=== PATIENT | female | born 2000 ===

== ENCOUNTER 2022-11-07 13:17 | Outpatient (REF) | payer MEDICAID, SELFPAY ==
[2022-11-07 16:11] LABS: MANUAL DIFF FLAG NO
[2022-11-07 16:19] LABS: Basophils Percent Auto 0.5 % (0-2); Eosinophils Absolute Auto 0.2 X10*3/uL (0.0-0.4); Eosinophils Percent Auto 1.7 % (0-4); Hematocrit 44.3 % (37.0-47.0); Hemoglobin 14.4 g/dl (12.0-16.0); Imm Gran Abs Auto 0.04 X10*3/uL (0.00-0.03); Imm Gran Pct Auto 0.5 % (0.0-0.4); Lymphocytes Absolute Auto 2.2 X10*3/uL (1.2-4.9); Lymphocytes Percent Auto 24.6 % (20-40); Mean Corpuscular HGB Conc 32.5 g/dl (31.0-35.0); Mean Corpuscular Hemoglobin 29.9 pg (27.0-33.0); Mean Corpuscular Volume 92.1 fL (80.0-98.0); Mean Platelet Volume 11.7 fL (9.4-12.3); Monocytes Absolute Auto 0.6 X10*3/uL (0.1-1.2); Monocytes Percent Auto 6.7 % (2-11); Neutrophils Absolute Auto 5.8 x10*3/uL (2.0-8.3); Platelet Count 231 X10*3/uL (160-400); Red Blood Count 4.81 X10*6/uL (4.20-5.50); Red Cell Distribution Width 13.1 % (11.0-16.0); White Blood Count 8.8 X10*3/uL (4.8-10.8)
[2022-11-07 16:40] LABS: Alanine Aminotransferase 15 U/L (0-31); Albumin Level 4.4 g/dL (3.5-5.0); Alkaline Phosphatase 47 U/L (39-117); Aspartate Amino Transferase 20 U/L (5-31); Bilirubin Direct 0.3 mg/dL (0.0-0.5); Bilirubin Total 0.7 mg/dL (0.0-1.0); Cholesterol 142 mg/dL (<200); HDL Cholesterol 45 mg/dL (>40); LDL Cholesterol Calculated 88 mg/dL (<100); Total Protein 7.1 g/dL (6.5-8.0); Triglycerides 47 mg/dL (<150)
[2022-11-08 04:35] LABS: CT PCR NOT DETECTED (Not Detect.); NG PCR NOT DETECTED (Not Detect.)
[2022-11-08 08:49] LABS: HIV AB/AG Nonreactive (Nonreactive); HIV Num 1 0.05 S/CO (0.00-0.99); ~HepC Num1 0.06 S/CO (0.00-0.79); ~Hepatitis C Antibody Nonreactive (Nonreactive)
[2022-11-08 09:52] LABS: RPR Rapid Plasma Reagin NON-REACTIVE (NON-REACTIVE)
[2022-11-11 15:28] LABS: Testosterone, Total 743 ng/dL (2-45)
== END 2022-11-07 13:18 | disposition home or self-care (01) ==
LOC: HO.HHCL 13:17
PROVIDERS: Visit Provider Family Medicine
DX: Z11.59 Encounter for screening for other viral diseases (principal); Z11.3 Encounter for screening for infections with a predominantly sexual mode of transmission; Z11.4 Encounter for screening for human immunodeficiency virus [HIV]; F64.9 Gender identity disorder, unspecified
CPT/HCPCS: 0353U; 80061; 80076; 84403; 85025; 86592; 86803; 87389

== ENCOUNTER 2023-02-06 18:30 | Outpatient (REF) | payer MEDICAID, SELFPAY ==
[2023-02-07 14:43] LABS: Influenza A PCR NEGATIVE (Negative); Influenza B PCR NEGATIVE (Negative); Resp Syncy Virus RNA Qual PCR NEGATIVE (Negative); SARS COV2 PCR INHOUSE NEGATIVE (Negative)
== END 2023-02-06 18:31 | disposition home or self-care (01) ==
LOC: HO.HHCLNP 18:30
PROVIDERS: Visit Provider Emergency Medicine
DX: Z11.52 Encounter for screening for COVID-19 (principal); J40 Bronchitis, not specified as acute or chronic
CPT/HCPCS: 0241U

== ENCOUNTER 2023-06-20 10:17 | Outpatient (REF) | payer MEDICAID, SELFPAY ==
[2023-06-20 11:34] LABS: Hematocrit 44.4 % (37.0-47.0); Hemoglobin 14.3 g/dl (12.0-16.0); Mean Corpuscular HGB Conc 32.2 g/dl (31.0-35.0); Mean Corpuscular Hemoglobin 30.1 pg (27.0-33.0); Mean Corpuscular Volume 93.5 fL (80.0-98.0); Mean Platelet Volume 11.5 fL (9.4-12.3); Platelet Count 203 X10*3/uL (160-400); Red Blood Count 4.75 X10*6/uL (4.20-5.50); Red Cell Distribution Width 13.2 % (11.0-16.0); White Blood Count 5.2 X10*3/uL (4.8-10.8)
[2023-06-20 12:11] LABS: Alanine Aminotransferase 18 U/L (0-31); Albumin Level 4.2 g/dL (3.5-5.0); Alkaline Phosphatase 53 U/L (39-117); Aspartate Amino Transferase 22 U/L (5-31); Bilirubin Direct 0.2 mg/dL (0.0-0.5); Bilirubin Total 0.5 mg/dL (0.0-1.0); Total Protein 6.7 g/dL (6.5-8.0)
[2023-06-20 12:36] LABS: HIV AB/AG Nonreactive (Nonreactive); HIV Num 1 0.04 S/CO (0.00-0.99); ~HepC Num1 0.08 S/CO (0.00-0.79); ~Hepatitis C Antibody Nonreactive (Nonreactive)
[2023-06-20 14:17] LABS: CT PCR NOT DETECTED (Not Detect.); NG PCR NOT DETECTED (Not Detect.)
[2023-06-21 17:34] LABS: RPR Rapid Plasma Reagin NON-REACTIVE (NON-REACTIVE)
[2023-06-24 15:09] LABS: Testosterone, Total 592 ng/dL (2-45)
== END 2023-06-20 10:18 | disposition home or self-care (01) ==
LOC: HO.HHCL 10:17
PROVIDERS: Visit Provider Family Medicine
DX: Z11.3 Encounter for screening for infections with a predominantly sexual mode of transmission (principal); Z11.4 Encounter for screening for human immunodeficiency virus [HIV]; F64.9 Gender identity disorder, unspecified
CPT/HCPCS: 0353U; 36415; 80076; 84403; 85027; 86592; 86803; 87389

== ENCOUNTER 2024-04-22 10:06 | Outpatient (REF) | payer MEDICAID, SELFPAY ==
[2024-04-22 11:49] LABS: Hematocrit 41.8 % (37.0-47.0); Hemoglobin 13.6 g/dl (12.0-16.0); Mean Corpuscular HGB Conc 32.5 g/dl (31.0-35.0); Mean Corpuscular Hemoglobin 29.8 pg (27.0-33.0); Mean Corpuscular Volume 91.5 fL (80.0-98.0); Mean Platelet Volume 10.9 fL (9.4-12.3); Platelet Count 201 X10*3/uL (160-400); Red Blood Count 4.57 X10*6/uL (4.20-5.50); Red Cell Distribution Width 13.3 % (11.0-16.0); White Blood Count 11.2 X10*3/uL (4.8-10.8)
--- OUTSIDE RECORDS SUMMARY | 2024-04-22 11:51 | XMS_ITS | Encounter Summary ---
Author Organization [employer] Address [address] [place] [address] Care Team Providers Care Parts Cleaner Name Role Phone Latoya Zazueta MD Primary Care Provider [phone]- [phone] Encounter Details Date Type Department Care Team (Latest Contact Info) Description 04/16/2024 Travel Social History Tobacco Use Types Packs/Day Years Used Date Smoking Tobacco: Never Passive Smoke Exposure: Never Smokeless Tobacco: Never Depression Answer Date Recorded Patient Health Questionnaire-9 Score 0 06/20/2023 Patient Health Questionnaire-9 Score 0 06/20/2023 Last PHQ-9: Questionnaire Data Not on file 0 06/20/2023 Housing Stability Answer Date Recorded What is your housing situation today? I have kim naranjo 06/12/[address] you li ve. Do you have problems with any of the following? None of the above 06/12/2023 Food Insecurity Answer Date Recorded Within the past 12 months, y ou worried that your food would run out before you got money to buy more: Sometimes True 2023 Within the past 12 months,th e food you bought just didn't last and you didn't have enough money to get more: Sometimes True 06/12/2023 Transportation Answer Date Recorded In the past 12 months, has l ack of transportation kept you from medical appts, meetings, work or from getting things needed for daily living? Yes, it has kept me from medical appointments or getting medications. 06/12/2023 Utilities Answer Date Recorded In the past 12 months, has t he electric, gas, oil or water company threatened to shut off services in your home? No 06/12/2023 Depression Answer Date Recorded Patient Health Questionnaire-2 Score 0 06/20/2023 Comments Unknown Sex and Gender Information Value Date Recorded Sex Assigned at Female 12/18/2021 10:38 AM EDT Legal Sex Male 10:38 AM EDT Gender Identity Transgender Male 12/18/2021 10:3 8 AM EDT Sexual Orientation Straight 12/18/2021 10 :38 AM EDT documented as of this encounter Plan of Treatment Not on file documented as of this encounter Visit Diagnoses Not on filedocumented in this encounter Additional Health Concerns Assessment Noted Time PHQ-9 Depression Total Score: 0 06/20/19 24 9:42 AM EDT documented as of this encounter Care Teams Parts Cleaner Relationship Specialty Start Date End Date Latoya Zazueta MD [address] [place] [phone] PCP - General Family Medicine 06/01/20 documented as of this encounter
--- OUTSIDE RECORDS SUMMARY | 2024-04-22 11:51 | XMS_ITS | Encounter Summary ---
Author Organization [employer] Address [address] [place] [address] 7t [place] [address] Care Team Providers Care Foreign Service Officer Name Role Phone Latoya Zazueta MD Primary Care Provider [phone]- [phone] Reason for Visit * Reason Onset Date Comments Med Refill 04/04/2022 Encounter Details Date Type Department Care Team ([facility] st Contact Info) Description 04/04/2022 Refill [facility]ICINE [address] [place], [place] [phone] Latoya Zazueta MD [address] [place], [place] [phone] Social History Tobacco Use Types Packs/Day Years Used Date Smoking Tobacco: Never Assessed Comments Unknown Sex and Gender Information Value Date Recorded Sex Assigned at Female 12/18/2021 10:38 AM EDT Legal Sex Male 10:38 AM EDT Gender Identity Transgender Male 12/18/2021 10:3 8 AM EDT Sexual Orientation Straight 12/18/2021 10 :38 AM EDT COVID-19 Exposure Response Date Recorded In the last 10 days, have yo u been in contact with someone who was confirmed or suspected to have Coronavirus/COVID-19? No / Unsure 04/05/2022 3:35 PM EST documented as of this encounter Miscellaneous Notes * Telephone Encounter - Ligia Tang LPN - 04/04/2022 11:54 AM EST Medication was sent to [facility] today 04/04/22. * Telephone Encounter - Billie Kumar Blake - 04/04/2022 11:25 AM EST Tc from pt requesting med refill on Needle (disp) 16 gauge x 1 and Alcohol Pads Please sent to [facility] - [place], [place] - [address] [facility] documented in this encounter Plan of Treatment Not on file documented as of this encounter Visit Diagnoses Not on filedocumented in this encounter Care Teams Foreign Service Officer Relationship Specialty Start Date End Date Latoya Zazueta MD [address] [facility] [place] [address] PCP - General Family Medicine 06/01/20 documented as of this encounter
--- OUTSIDE RECORDS SUMMARY | 2024-04-22 11:51 | XMS_ITS | Encounter Summary ---
Author Organization [employer] Address [address] [facility] [address] [address] [place] [address] Care Team Providers Care Family Development Specialist Name Role Phone Latoya Zazueta MD Primary Care Provider +1- [phone] Encounter Details Date Type Department Care Team (Late st Contact Info) Description 03/06/2022 Abstract [facility] MEDICINE [address] [place], [place] [phone] Latoya Zazueta MD [address] [place] [address] Social History Tobacco Use Types Packs/Day Years [...] on file documented as of this encounter Procedures Procedure Name Priority Date/Time Associated Diagnosis Comments PAP SMEAR Routine 11/03/2021 12:00 AM EDT documented in this encounter Results * Pap Smear (11/03/2021 12:00 AM EDT) Swab us Latoya Zazueta MD LAB CYTOLOGY ORDERABLES Fi nal Result [facility] [address] [place] [address] [phone] documented in this encounter Visit Diagnoses Not on filedocumented in this encounter Care Teams Family Development Specialist Relationship Specialty Start Date End Date Latoya Zazueta MD [address] [place] [phone] PCP - General Family Medicine 06/01/20 documented as of this encounter
--- OUTSIDE RECORDS SUMMARY | 2024-04-22 11:51 | XMS_ITS | Clinical Summary ---
Author Organization [employer] Address [address] [facility] [address] [place] [address] Care Team Providers Care Back Pad Inspector Name Role Phone Latoya Zazueta MD Primary Care Provider +1- [phone] Allergies No known active allergies Medications Alcohol Swabs (SM Alcohol Prep) 70 % padsIndications: Gender dysphoria USE BEFORE TESTOSTERONE INJECTION 100 each 5 07/11/19 24 Active Needle, Disp, (BD Disp [place]) 18G X 1-1/2 miscIndications: Gender dysphoria Use to draw up testosterone as directed 12 each 3 11/13/19 24 Active Needle, Disp, 16G X 1-1/2 miscIndications: Gender dysphoria use to draw up testosterone 25 each 1 11/13/19 24 Active Syringe/Needle, Disp, (B-D 3CC LUER-VANESSA SYR 25GX1 ) 25G X 1 3 ML miscIndications: Gender dysphoria USE TO INJECT TESTOSTERONE 25 each 5 12/27/19 24 Active albuterol (Ventolin HFA) 108 (90 Base) MCG/ACT inhalerIndicatio ns:Mild intermittent asthma without complication INHALE 2 PUFFS BY MOUTH EVERY 4 HOURS NEEDED FOR WHEEZING OR SHORTNESS OF BREATH 18 g 1 01/30/20 24 Active testosterone cypionate (Depo-Testostero ne) 200 MG/ML injectionIndicat ions:Gender dysphoria INJECT 0.5 ML INTRAMUSCULARLY EVERY 2 WEEKS 2 mL 4 02/24/19 25 Active Active Problems Problem Noted Date Diagnosed Date Dietary counseling 04/16/2024 Assessment & Plan (04/16/2024 9:43 AM EST): Dietary Recommendations: Fruits, vegetables, whole grains, protein foods, and fat-free or low-fat dairy products are healthy choices. Eat different types of protein foods in your diet. This can include seafood, lean meats, poultry, beans, peas, lentils, nuts, seeds, soy products, and eggs. Limit foods and beverages higher in added sugars, saturated fat, and sodium. Exercise counseling 04/16/2024 Assessment & Plan (04/16/2024 9:43 AM EST): Exercise Recommendations: At least 150 minutes of moderate-intensity physical activity per week, or an equivalent combination of moderate- and vigorous-intensity activity Overweight with body mass in dex (BMI) of 25 to 25.9 in adult 04/16/2024 Overview (04/16/2024): Discussed weight, diet, exercise with patient in relation to health conditions. Used motivational interviewing to illicit change talk and established initial goals with patient. Assessment & Plan (04/16/2024 9:43 AM EST): Discussed weight, diet, exercise with patient in relation to health conditions. Used motivational interviewing to illicit change talk and established initial goals with patient. Callus of foot 06/20/2023 Overview (06/20/2023): -Calluses pared down without difficulty 06/20/23 -Patient experienced immediate relief in pain Assessment & Plan (06/20/2023 10:03 AM EDT): -Calluses pared down without difficulty 06/20/23 -Patient experienced immediate relief in pain Other specified health status 10/29/2022 Overview (04/16/2024): -next physical exam due after 04/16/25 -eye care facilitated by none, referral placed to [facility] 04/16/24 -dental home is none, encouraged to call [facility]. -Health care proxy filed 04/16/24 Assessment & Plan (04/16/2024 10:02 AM EST): -next physical exam due after 04/16/25 -eye care facilitated by none, referral placed to [facility] care 04/16/24 -dental home is none, encouraged to call [facility]. -Health care proxy filed 04/16/24 Assessment & Plan (06/20/2023 10:01 AM EDT): -next physical exam due after 11/01/2023. -eye care facilitated by none, referral placed to [facility] care 06/20/23 -dental home is none, encouraged to call [facility]. -Health care proxy paperwork provided to the patient 06/20/23 Assessment & Plan (10/31/2022 10:49 AM EDT): -next physical exam due after 10/31/2022 -eye care facilitated by none, list given. -dental home is none. Encouraged to call [facility]. 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 -Had cochlear implants -Patient needs accountant controller for all visits. Please make note of this in any referrals. -referred to audiology 04/16/24 Assessment & Plan (04/16/2024 10:03 AM EST): Bilateral deafness. -Had cochlear implants -Patient needs accountant controller for all visits. Please make note of this in any referrals. -referred to audiology 04/16/24 Gender dysphoria 04/05/2022 Overview (04/16/2024): Assigned female at , socially transitioned. Uses the name Zack and he/him pronouns. -testosterone cypionate 200mg/ml at 0.5mL q 2 weeks started 07/01/2020, testosterone was at increase to 1ml q2 weeks 08/15/2020 and Testosterone level 09/28/2020 was elevated at 1,236. (goal 350-700) -testosterone cypionate 200mg/ml decreased to 0.5ml q 2 weeks 10/13/2020 due to elevated testosterone. (Goal testosterone level 350-700) -Testosterone level was 743 on 11/07/22 and 587 on 10/11/21. -Letter from therapist for breast augmentation. -New referral sent to Dr. [place] 10/31/2022. -missed last testosterone shot, ordered labs 04/16/24 -interested in breast surgery, discussed getting referral from therapist. -referred to empowerment project 04/16/24 Assessment & Plan (04/16/2024 10:02 AM EST): Assigned female at , socially transitioned. Uses the name Zack and he/him pronouns. -testosterone cypionate 200mg/ml at 0.5mL q 2 weeks started 07/01/2020, testosterone was at increase to 1ml q2 weeks 08/15/2020 and Testosterone level 09/28/2020 was elevated at 1,236. (goal 350-700) -testosterone cypionate 200mg/ml decreased to 0.5ml q 2 weeks 10/13/2020 due to elevated testosterone. (Goal testosterone level 350-700) -Testosterone level was 743 on 11/07/22 and 587 on 10/11/21. -Letter from therapist for breast augmentation. -New referral sent to Dr. [place]wood 10/31/2022. -missed last testosterone shot, ordered labs 04/16/24 -interested in breast surgery, discussed getting referral from therapist. -referred to empowerment project 04/16/24 Assessment & Plan (06/20/2023 9:46 AM EDT): Assigned female at , socially transitioned. Uses the name Zack and he/him pronouns. -testosterone cypionate 200mg/ml at 0.5mL q 2 weeks started 07/01/2020, testosterone was at increase to 1ml q2 weeks 08/15/2020 and Testosterone level 09/28/2020 was elevated at 1,236. (goal 350-700) -testosterone cypionate 200mg/ml decreased to 0.5ml q 2 weeks 10/13/2020 due to elevated testosterone. (Goal testosterone level 350-700) -Testosterone level was 743 on 11/07/22 and 587 on 10/11/21. -Letter from therapist for breast augmentation. -New referral sent to Dr. [place]wood 10/31/2022. Assessment & Plan (10/31/2022 10:48 AM EDT): Assigned female at , socially transitioned. Uses the name Zack and he/him pronouns. -testosterone cypionate 200mg/ml at 0.5mL q 2 weeks started 07/01/2020, testosterone was at increase to 1ml q2 weeks 08/15/2020 and Testosterone level 09/28/2020 was elevated at 1,236. (goal 350-700) -testosterone cypionate 200mg/ml decreased to 0.5ml q 2 weeks 10/13/2020 due to elevated testosterone. (Goal testosterone level 350-700) -Testosterone level was 587 on 10/11/21. -Letter from therapist for breast augmentation. -New referral sent to Dr. [place]wood 10/31/2022. Assessment & Plan (04/06/2022 10:54 AM EST): Assigned female at , socially transitioned. Uses the name Zack and he/him pronouns. -Testosterone cypionate 200mg/ml at 0.5mL q 2 weeks started 07/01/2020, testosterone was at increase to 1ml q2 weeks 08/15/2020 and Testosterone level 09/28/2020 was elevated at 1,236. (goal 350-700) -Testosterone cypionate 200mg/ml decreased to 0.5ml q 2 weeks 10/13/2020 due to elevated testosterone. (Goal testosterone level 350-700) -Testosterone level was 587 on 10/11/21. -Next labs due 09/2022. Unsatisfactory cervical Papanicolaou smear 04/05 Overview (04/05/2022): Pap unsatisfactory, low risk, shared decision making done. Assessment & Plan (04/05/2022 9:17 AM EST): Pap unsatisfactory, low risk, shared decision making done. Plantar wart 04/05/2022 Leg pain, bilateral 04/05/2022 Resolved Problems Problem Noted Date Diagnosed Date Resolved Date Sexually transmitted disease exposure 04/05/2022 10/31/2022 Overview (10/29/2022): -reports girlfriend had chlamydia x1 month ago. He is not sure it was chlamydia but reports it started with letter c -continues to be sexually active -will test for all STIs, including oral -will hold off on empiric treatment given history of exposure is not clear and pt is good with follow up. Assessment & Plan (04/05/2022 9:17 AM EST): -reports girlfriend had chlamydia x1 month ago. He is not sure it was chlamydia but reports it started with letter c -continues to be sexually active -will test for all STIs, including oral -will hold off on empiric treatment given history of exposure is not clear and pt is good with follow up. Encounters Date Type Department Care Team Description 04/16/2024 9:30 AM EST Office Visit [facility] [address] [place] [phone] Latoya Zazueta MD Gender dysphoria (Primary Dx); Bilateral deafness; Overweight with body mass index (BMI) of 25 to 25.9 in adult; Dietary counseling; Exercise counseling; Other specified health status; Encounter for immunization; Cochlear implant in place 04/16/2024 Travel 04/09/2024 Telephone [facility] [address] [place] [phone] Latoya Zazueta MD chartprep 04/03/2024 Patient Outreach [facility] [address] [place] [phone] Latoya Zazueta MD Pre-visit Planning (Pre-visit planning - LVM ) 02/25/2024 Refill [facility] [address] [place] [address] [phone] Latoya Zazueta MD Gender dysphoria 01/30/2024 Refill [facility] [address] [place] [address] [phone] Laotya Zazueta MD Mild intermittent asthma without complication 01/27/2024 Telephone [facility] [address] [place] [phone] Alee Gann MA March Recall from Last 3 Months Immunizations Name Administration Dates Next Due HPV 9-Valent 10/31/2022,05/04/2022,04/06/2022 05/04/2022 Hep B, adult 06/20/2023, 3,05/04/2022,04/0605/04/2022 Influenza injectable quadriv alent IIV4 with preservative 10/31/2022 Influenza injectable quadriv alent preservative free 11/03/2021,12/19/2020 Influenza, seasonal, injecta ble, preservative free 04/16/2024 Moderna Covid-19 Vaccine 12+ 03/07/2021,07/14/19 21,06/15/2020 Pneumococcal Conjugate PCV 20 06/20/2023 Tdap 11/03/2021 Family History Medical History Relation Name Comments Diabetes Maternal Grandmother Lupus Mother Relation Name Status Comments Maternal Grandmother Mother Social History Tobacco Use Types Packs/Day Years Used Date Smoking Tobacco: Never Passive Smoke Exposure: Never Smokeless Tobacco: Never Tobacco Cessation:Counseling Given: Not Answered Depression Answer Date Recorded Patient Health Questionnaire-9 [...] Orientation Straight 12/18/2021 10 :38 AM EDT Last Filed Vital Signs Vital Sign Reading Time Taken Comments Blood Pressure 120/68 04/16/2024 9:33 AM EST Pulse 62 04/16/2024 9:33 AM EST Temperature 35.5 ??C (95.9 ??F) 04/16/2024 9:33 AM ES T Respiratory Rate 20 04/16/2024 9:33 AM EST Oxygen Saturation 97% 04/16/2024 9:33 AM EST Inhaled Oxygen Concentration - - Weight 57.9 kg (127 lb 9.6 oz) 04/16/2024 9:33 A M EST Height 150.5 cm (4' 11.25 ) 04/16/2024 9:[address] Body Mass Index 25.56 04/16/2024 9:33 AM EST Plan of Treatment Health Maintenance Due Date Last Done Comments SDOH Screening 06/11/2024 06/12/2023 Depression Screening 06/19/2024 06/20/2023, 06/20/19 Family Planning (PISQ) 06/19/2024 06/20/2023 Tobacco Screening 06/19/2024 06/20/2023 Pap Smear 11/03/2024 11/03/2021, 11/03/2021 Alcohol/Substance Use Screening 04/16/2025 04/16/2024 COVID-19 Vaccine ( season) 2025 03/07/2021, 07/13/2020, 06/15/2020 Postponed from 10/20/2023 (Patient Refused) DTaP/Tdap/Td Vaccines (2 - Td or Tdap) 11/04/2031 11/03/2021 Zoster Vaccines (1 of 2) 2048 RSV Patients and Patients Aged 60 years or older (1 - 1-dose 75+ series) 2073 HPV Vaccines Completed 10/31/2022, 04/18, 04/06/2022 HIV Screening Completed 06/20/2023, 10/20, 10/11/2021, Additional history exists Hepatitis B Vaccines Completed 06/20/2023, 06/29/2022, 05/04/2022, Additional history exists Hepatitis C Screening Completed 06/20/2023 , 11/07/2022, 10/11/2021, Additional history exists Pneumococcal Vaccine: Pediatrics (0 to 5 Years) and At-Risk Patients (6 to 49) Years) Completed 06/20/2023 Influenza Vaccine Completed 04/16/2024, , 11/03/2021, Additional history exists HIB Vaccines Aged Out No longer eligi ble based on patient's age to complete this topic Hepatitis A Vaccines Aged Out No long er eligible based on patient's age to complete this topic IPV Vaccines Aged Out No longer eligi ble based on patient's age to complete this topic Meningococcal Vaccine Aged Out No agustin maura eligible based on patient's age to complete this topic RSV under 20 months Aged Out No longe r eligible based on patient's age to complete this topic Rotavirus Vaccines Aged Out No longer eligible based on patient's age to complete this topic Procedures Procedure Name Priority Date/Time Associated Diagnosis Comments CBC Routine 04/22/2024 10:09 AM EST Gender dysphoria HEPATITIS C AB W/REFL TO HCV RNA, QN, PCR Routine 06/20/2023 10:19 AM EDT Screen for sexually transmitted diseases HIV 1/2 ANTIGEN/ANTIBODY, FOURTH GENERATION W/RFL Routine 06/20/2023 10:19 AM EDT Screen for sexually transmitted diseases PAP SMEAR Routine 11/03/2021 12:00 AM EDT from Last 3 Months or Most Recently Relevant to Health Maintenance Results * (ABNORMAL) CBC (04/22/2024 10:09 AM EST) White Blood Count 11.2(H) 4.8 - 10.8 X10*3/uL [facility] Red Blood Count 4.57 4.20 - 5.50 X10*6/uL [facility] Hemoglobin 13.6 12.0 - 16.0 g/dl [facility] Hematocrit 41.8 37.0 - 47.0 % [facility] Mean Corpuscular Volume 91.5 80.0 - 98.0 fL [facility] Mean Corpuscular Hemoglobin 29.8 27.0 - 33.0 pg [facility] Mean Corpuscular HGB Conc 32.5 31.0 - 35.0 g/dl [facility] Red Cell Distribution Width 13.3 11.0 - 16.0 % [facility] Platelet Count 201 160 - 400 X10*3/uL [facility] Mean Platelet Volume 10.9 9.4 - 12.3 fL [facility] NRBC Pct Auto 0.0 0.0 - 0.2 /100WBC [facility] NRBC Abs Auto 0.000 0.0 - 0.012 X10*3/uL [facility] Blood Venous blood specimen / Unknown 04/22/2024 10:09 AM EST 04/22/2024 11:25 AM EST Latoya Zazueta MD LAB BLOOD ORDERABLES Final Result Performing Organization Address [facility]/ZIP Co de Phone Number [facility] [address] [place] [phone] * Hepatitis C Antibody with Reflex to HCV, RNA, Quantitative, Real-Time PCR (06/20/2023 10:19 AM EDT) Hepatitis C Antibody Nonreactive Nonreactive [facility] Comment:Antibodies to HCV no t detected; does not exclude early acuteHCV infection. Blood Venous blood specimen / Unknown 06/20/2023 10:19 AM EDT 06/20/2023 11:27 AM EDT Latoya Zazueta MD LAB BLOOD ORDERABLES Final Result Performing Organization Address [facility]/ZIP Co de Phone Number [facility] [address] [place] [phone] * HIV-1/2 Antigen and Antibodies, Fourth Generation, with Reflexes (06/20/2023 10:19 AM EDT) HIV AB/AG Nonreactive Nonreactive [facility] Comment:HIV-1 p24 Ag and/or HIV-1/HIV-2 Ab not detected.A test result that is nonreactive does not exclude thepossibility of exposure to or infection with HIV-1 and/orHIV-2. Nonreactive results in this assay for individualswith prior exposure to HIV-1 and/or HIV-2 may be due toantigen and antibody levels that are below the limit ofdetection of this assay.The [employer] HIV Ag/Ab Combo assay result andsupplemental assay results should be interpreted inconjunction with the patient's clinical presentation,history and other laboratory results. If the results areinconsistent with clinical evidence, additional testing issuggested to confirm the result. Blood Venous blood specimen / Unknown 06/20/2023 10:19 AM EDT 06/20/2023 11:27 AM EDT Latoya Zazueta MD LAB BLOOD ORDERABLES Final Result Performing Organization Address [facility] Co de Phone Number [facility] [address] [place] [phone] * Pap Smear (11/03/2021 12:00 AM EDT) Swab Latoya Zazueta MD LAB CYTOLOGY ORDERABLES Fi nal Result Performing Organization Address [facility] Co de Phone Number [facility] [address] [place] [phone] from Last 3 Months or Most Recently Relevant to Health Maintenance [place] [address] [address] [address] STANDARD Advance Directives Documents on File Type Date Recorded 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
--- OUTSIDE RECORDS SUMMARY | 2024-04-22 11:52 | XMS_ITS | Clinical Summary ---
Author Organization [facility] Address [address] [place] [address] Care Team Providers Care Dental Office Manager Name Role Phone Unavailable Primary Care Provider Unavailabl e Social History Tobacco Use Types Packs/Day Years Used Date Smoking Tobacco: Never Assessed Comments Unknown Sex and Gender Information Value Date Recorded Sex Assigned at Not on file Legal Sex Female 5:08 PM EST Gender Identity Not on file Sexual Orientation Not on file Plan of Treatment Health Maintenance Due Date Last Done Comments HPV Vaccines (1 - 3-dose series) 2013 DTaP,Tdap,and Td Vaccines (1 - Tdap) 2017 Hepatitis B Vaccines (1 of 3 - 19+ 3-dose series) 2017 Cervical Cancer Screening: P ap Smear 2019 Depression Screening 01/17/2022 HIV Screening 01/17/2022 Hepatitis C Screening 01/17/2022 Social Influencers of Health Screening 01/17/2022 COVID-19 Vaccine ( - 2023-2 5 season) 2023 Influenza Vaccine (#1) 2023 HIB Vaccines Aged Out No longer eligi ble based on patient's age to complete this topic Hepatitis A Vaccines Aged Out No long er eligible based on patient's age to complete this topic IPV Vaccines Aged Out No longer eligi ble based on patient's age to complete this topic MMR Vaccines Aged Out No longer eligi ble based on patient's age to complete this topic Meningococcal ACWY Vaccine Aged Out N o longer eligible based on patient's age to complete this topic Meningococcal B Vacine Aged Out No lo nger eligible based on patient's age to complete this topic Pneumococcal Vaccine: Pediat rics (0 to 5 Years) and At-Risk Patients (6 to 64 Years) Aged Out No longer eligible b ased on patient's age to complete this topic RSV Immunization Patients Un tamiko 20 months Aged Out No longer eligible b ased on patient's age to complete this topic Varicella Vaccines Aged Out No longer eligible based on patient's age to complete this topic
--- OUTSIDE RECORDS SUMMARY | 2024-04-22 11:52 | XMS_ITS | Encounter Summary ---
Author Organization [employer] Address [address] [facility] 7t [place] [address] Care Team Providers Care Segment Block Layer Name Role Phone Latoya Zazueta MD Primary Care Provider +1- [phone] Reason for Visit * Reason Onset Date Comments Med Refill 09/16/2023 Encounter Details Date Type Department Care Team (Late st Contact Info) Description 09/16/2023 Refill [facility] [address] [place], [place] [phone] Latoya Zazueta MD [address] [place], [place] [phone] Gender dysphoria Social History Tobacco Use Types Packs/Day Years [...] documented as of this encounter Visit Diagnoses Diagnosis Gender dysphoria documented in this encounter Additional Health Concerns Assessment Noted Time PHQ-9 Depression Total Score: 0 06/20/19 24 9:42 AM EDT documented as of this encounter Care Teams Segment Block Layer Relationship Specialty Start Date End Date Latoya Zazueta MD [address] [place] [address] PCP - General Family Medicine 06/01/20 documented as of this encounter
--- OUTSIDE RECORDS SUMMARY | 2024-04-22 11:52 | XMS_ITS | Encounter Summary ---
Author Organization [employer] Address [address] [facility] 7t [place] [address] Care Team Providers Care Fringe Knotter Name Role Phone Latoya Zazueta MD Primary Care Provider +1- [phone] Reason for Visit * Reason Onset Date Comments Med Refill 07/10/2023 Encounter Details Date Type Department Care Team ([facility] st Contact Info) Description 07/10/2023 Telephone [facility] MED[facility]INE [address] [place], [place] [phone] Latoya Zazueta MD [address] [place], [place] [phone] Med Refill Social History Tobacco Use Types Packs/Day Years [...] AM EDT documented as of this encounter Miscellaneous Notes * Telephone Encounter - Ligia Tang LPN - 07/10/2023 11:43 AM EDT Medication pended to PCP. * Telephone Encounter - Shu Capone - 07/10/2023 11:37 AM EDT TC from pt requesting medication refill. Medications needing refill : testosterone cypionate (Depo-Testosterone) 200 MG/ML injection To be sent to: [facility]/pharmacy #[id number] [facility] [phone] [place] [address] documented in this encounter Plan of Treatment Not on file documented as of this encounter Visit Diagnoses Not on filedocumented in this encounter Additional Health Concerns Assessment Noted Time PHQ-9 Depression Total Score: 0 06/20/19 24 9:42 AM EDT documented as of this encounter Care Teams Fringe Knotter Relationship Specialty Start Date End Date Latoya Zazueta MD [address] [place] [phone] PCP - General Family Medicine 06/01/20 documented as of this encounter
--- OUTSIDE RECORDS SUMMARY | 2024-04-22 11:52 | XMS_ITS | Encounter Summary ---
Author Organization [employer] Address [address] [facility] 7t [place] [address] Care Team Providers Care Compliance Monitor Name Role Phone Latoya Zazueta MD Primary Care Provider +1- [phone] Reason for Visit * Reason Onset Date Comments Med Refill 01/08/2024 Encounter Details Date Type Department Care Team ([facility] st Contact Info) Description 01/08/2024 Telephone [facility] MEDICINE [address] [place], [place] [phone] Latoya Zazueta MD [address] [place], [place] [phone] Med Refill Social History Tobacco Use Types [...] Telephone Encounter - Ligia Tang LPN - 01/08/2024 8:45 AM EST Medication was sent to [facility] #[id number] on 11/13/23 with 4 refills. * Telephone Encounter - Radha Orosco - 01/08/2024 8:41 AM EST TC from pt requesting medication refill. Medications needing refill : testosterone cypionate (Depo-Testosterone) 200 MG/ML injection To be sent to: [facility]/pharmacy #[id number] [place], [place] - [phone] documented in this encounter Plan of Treatment Not on file documented as of this encounter Visit Diagnoses Not on filedocumented in this encounter Additional Health Concerns Assessment Noted Time PHQ-9 Depression Total Score: 0 06/20/19 9:42 AM EDT documented as of this encounter Care Teams Compliance Monitor Relationship Specialty Start Date End Date Latoya Zazueta MD [address] [place] [address] PCP - General Family Medicine 06/01/20 documented as of this encounter
--- OUTSIDE RECORDS SUMMARY | 2024-04-22 11:52 | XMS_ITS | Encounter Summary ---
Author Organization [employer] Address [address] [place] [address] 7t [place] [address] Care Team Providers Care Pipe Fitter Maintenance Name Role Phone Latoya Zazueta MD Primary Care Provider +1- [phone] Reason for Referral * Consultation (Routine) - Authorized Specialty Diagnoses / Procedures Referred By Lorin mejia Referred To Contact Optometry Diagnoses Bilateral deafness Latoya Zazueta MD [address] [place] [address] Phone: tel: fax: [facility] OPTOMETRY [address] [place] [address] Phone: tel: fax: Referral ID Status Reason Start Date Expiration Date Visits Requested Visits Authorized [id number] Authorized Consult and Treat 04/16/2024 04/16/2025 1 1 * Consultation (Routine) - Authorized Specialty Diagnoses / Procedures Referred By Lorin mejia Referred To Contact Audiology Diagnoses Bilateral deafness Cochlear implant in place Latoya Zazueta MD [address] [place] [address] Phone: tel: fax: [facility] [place] [address] [address], [place] Phone: tel: fax: Referral ID Status Reason Start Date Expiration Date Visits Requested Visits Authorized [id number] Authorized Specialty Services Required 04/16/2024 04/16/2025 6 6 Reason for Visit * Reason Comments Annual Exam Encounter Details Date Type Department Care Team (Late st Contact Info) Description 04/16/2024 9:30 AM EST Office Visit [facility] MEDIC[facility] [address] [place] [address] Latoya Zazueta MD [address] [place] [address] Gender dysphoria (Primary Dx); Bilateral deafness; Overweight with body mass index (BMI) of 25 to 25.9 in adult; Dietary counseling; Exercise counseling; Other specified health status; Encounter for immunization; Cochlear implant in place Social History Tobacco Use Types Packs/Day Years Used Date Smoking Tobacco: Never Passive Smoke Exposure: Never Smokeless Tobacco: Never Depression Answer Date Recorded Patient Health Questionnaire-9 Score 0 06/20/2023 Patient Health Questionnaire-9 Score 0 06/20/2023 Last PHQ-9: Questionnaire Data Not on file 0 06/20/2023 Housing Stability Answer Date Recorded What is your housing situation today? I have kim jose a 06/12/[address] you li [...] AM EDT documented as of this encounter Last Filed Vital Signs Vital Sign Reading [...] Mass Index 25.56 04/16/2024 9:33 AM EST documented in this encounter Patient Instructions * Patient Instructions* Latoya Zazueta MD - 04/16/2024 9:30 AM EST [facility] provides affirming mental health care services for LGBTQIA+ children, adolescents, adults, families and communities via the [employer] [facility]. This includes assessment for letters of support for hormone blockers, hormone replacement therapy, and gender confirmation surgeries. Call [phone] to schedule an initial intake with a therapist. Let the initial therapist know you want to be part of the [facility] Project and the clinician will refer you to the [facility]. documented in this encounter Progress Notes * Latoya Zazueta MD - 04/16/2024 9:30 AM EST More Dixon is a 24 y.o. adult with past medical history bilateral deafness and gender dysphoria who presents to the office today for chronic medical conditions and comprehensive annual evaluation. Overall reports doing well. Pt reports he was suppose to have his testosterone shot x2 weeks ago, but he missed a shot. He notes he would like to have breast surgery. Agrees to flu vaccine today. Social History Tobacco: denied Drugs: alcohol and marijuana, smokes occasional weed, no interested in cessation. Alcohol: on rare social occassions Sexuality: unspecified. Suicide/Depression: The patient denies any present symptoms of depression or anxiety. Review of Systems Constitutional: Negative for fever and unexpected weight change. Respiratory: Negative for shortness of breath. Cardiovascular: Negative for chest pain. Gastrointestinal: Negative for abdominal pain. Genitourinary: Negative for difficulty urinating. Current Outpatient Medications: ??? albuterol (Ventolin HFA) 108 (90 Base) MCG/ACT inhaler, INHALE 2 PUFFS BY MOUTH EVERY 4 HOURS NEEDED FOR WHEEZING OR SHORTNESS OF BREATH, Disp: 18 g, Rfl: 1 ??? Alcohol Swabs (SM Alcohol Prep) 70 % pads, USE BEFORE TESTOSTERONE INJECTION, Disp: 100 each, Rfl: 5 ??? Needle, Disp, (BD Disp Universal) 18G X 1-1/2 misc, Use to draw up testosterone as directed, Disp: 12 each, Rfl: 3 ??? Needle, Disp, 16G X 1-1/2 misc, use to draw up testosterone, Disp: 25 each, Rfl: 1 ??? Syringe/Needle, Disp, (B-D 3CC LUER-VANESSA SYR 25GX1 ) 25G X 1 3 ML misc, USE TO INJECT TESTOSTERONE, Disp: 25 each, Rfl: 5 ??? testosterone cypionate (Depo-Testosterone) 200 MG/ML injection, INJECT 0.5 ML INTRAMUSCULARLY EVERY 2 WEEKS, Disp: 2 mL, Rfl: 4 No Known Allergies Past Medical History: Diagnosis Date ??? Bilateral deafness 04/06/2022 Past Surgical History: Procedure Laterality Date ??? COCHLEAR IMPLANT 2000 Family History Problem Relation Name Age of Onset ??? Lupus Mother ??? Diabetes Maternal Grandmother Objective Visit Vitals BP 120/68 (BP Location: Left arm, Patient Position: Sitting, BP Cuff Size: Adult) Pulse 62 Temp 95.9 ??F (35.5 ??C) (Temporal) Resp 20 Ht 4' 11.25 (1.505 m) Wt 127 lb 9.6 oz (57.9 kg) SpO2 97% BMI 25.56 kg/m?? Smoking Status Never BSA 1.56 m?? Physical Exam Constitutional: Appearance: Normal appearance. HENT: Right Ear: Tympanic membrane normal. Left Ear: Tympanic membrane normal. Nose: Nose normal. Mouth/Throat: Pharynx: Oropharynx is clear. Eyes: Extraocular Movements: Extraocular movements intact. Pupils: Pupils are equal, round, and reactive to light. Cardiovascular: Rate and Rhythm: Normal rate and regular rhythm. Heart sounds: Normal heart sounds. Pulmonary: Effort: Pulmonary effort is normal. Breath sounds: Normal breath sounds. No wheezing. Abdominal: General: Abdomen is flat. Palpations: Abdomen is soft. Tenderness: There is no abdominal tenderness. Musculoskeletal: General: Normal range of motion. Skin: General: Skin is warm and dry. Neurological: General: No focal deficit present. Mental Status: He is alert. Psychiatric: Mood and Affect: Mood normal. Behavior: Behavior normal. 24 y.o. adult annual evaluation. Problem List Items Addressed This Visit Gender dysphoria - Primary Assigned female at , socially transitioned. Uses the name Zack and he/him pronouns. -testosterone cypionate 200mg/ml at 0.5mL q 2 weeks started 07/01/2020, testosterone was at increaseto 1ml q2 weeks 08/15/2020 and Testosterone level [...] from therapist. -referred to empowerment project 04/16/24 Relevant Orders Hepatic Function Panel CBC Testosterone, Total, males (Adult), IA Lipid Panel, Standard Bilateral deafness Bilateral deafness. -Had cochlear implants -Patient needs deployment manager for all visits. Please make note of this in any referrals. -referred to audiology 04/16/24 Relevant Orders Referral to Audiology Referral to [facility] Care Overweight with body mass index (BMI) of 25 to 25.9 in adult Discussed weight, diet, exercise with patient in relation to health conditions. Used motivational interviewing to illicit change talk and established initial goals with patient. Dietary counseling Dietary Recommendations: Fruits, vegetables, whole grains, protein foods, and fat-free or low-fat dairy products are healthychoices. Eat different types of protein foods in your diet. This can include seafood, lean meats, poultry, beans, peas, lentils, nuts, seeds, soy products, and eggs. Limit foods and beverages higher in added sugars, saturated fat, and sodium. Exercise counseling Exercise Recommendations: At least 150 minutes of moderate-intensity physical activity per week, or an equivalent combinationof moderate- and vigorous-intensity activity Other specified health status -next physical exam due after 04/16/25 -eye care facilitated by none, referral placed to [facility] Eye care 04/16/24 -dental home is none, encouraged to call [facility]. -Health care proxy filed 04/16/24 Other Visit Diagnoses Encounter for immunization Relevant Orders FLU VACCINE TRIVALENT (Fluarix) 6 mo + (Completed) Cochlear implant in place Relevant Orders Referral to Audiology Annual Evaluation -Normal growth and development. -Anticipatory guidance discussed. -Preventative care / harm reduction discussed. Follow up in about 7 months (around 11/14/2024) for PAP. I, Socrates Segura, am serving as a scribe to document services personally performed by Dr. Cai, based on the patient's response to questions by provider and providers statements to me. documented in this encounter Miscellaneous Notes * Assessment & Plan Note - Socrates Segura - 04/16/2024 9:52 AM ESTAssociated Problem(s): Gender dysphoria Assigned female at , socially transitioned. Uses the name Zcak and he/him pronouns. -testosterone cypionate 200mg/ml at 0.5mL q 2 weeks started 07/01/2020, testosterone was at increaseto 1ml q2 weeks 08/15/2020 and Testosterone level [...] from therapist. -referred to empowerment project 04/16/24 * Assessment & Plan Note - AshleyBinary Event Networker - 04/16/2024 9:51 AM ESTAssociated Problem(s): Other specified health status -next physical exam due after 04/16/25 -eye care facilitated by none, referral placed to [facility] Eye care 04/16/24 -dental home is none, encouraged to call [facility]. -Health care proxy filed 04/16/24 * Assessment & Plan Note - AshleyBinary Event Networker - 04/16/2024 9:49 AM ESTAssociated Problem(s): Bilateral deafness Bilateral deafness. -Had cochlear implants -Patient needs deployment manager for all visits. Please make note of this in any referrals. -referred to audiology 04/16/24 * Assessment & Plan Note - AshleyBinary Event Networker - 04/16/2024 9:43 AM ESTAssociated Problem(s): Exercise counseling Exercise Recommendations: At least 150 minutes of moderate-intensity physical activity per week, or an equivalent combinationof moderate- and vigorous-intensity activity * Assessment & Plan Note - Socrates Segura - 04/16/2024 9:43 AM ESTAssociated Problem(s): Dietary counseling Dietary Recommendations: Fruits, vegetables, whole grains, protein foods, and fat-free or low-fat dairy products are healthychoices. Eat different types of protein foods in your diet. This can include seafood, lean meats, poultry, beans, peas, lentils, nuts, seeds, soy products, and eggs. Limit foods and beverages higher in added sugars, saturated fat, and sodium. * Assessment & Plan Note - Socrates Segura - 04/16/2024 9:43 AM ESTAssociated Problem(s): Overweight with body mass index (BMI) of 25 to 25.9 in adult Discussed weight, diet, exercise with patient in relation to health conditions. Used motivational interviewing to illicit change talk and established initial goals with patient. documented in this encounter Plan of Treatment Scheduled Orders Name Type Priority Associated Diagnoses Orde r Schedule Hepatic Function Panel Lab Routine Gender dysphoria Expected: 04/16/2024 (Approximate), Expires: 04/16/2025 Testosterone, Total, males (Adult), IA Lab Routine Gender dysphoria Expected: 04/16/2024, Expires: 04/16/2025 Lipid Panel, Standard Lab Routine Gender dysphoria Expected: 04/16/2024 (Approximate), Expires: 04/16/2025 Scheduled Referrals Name Type Priority Associated Diagnoses Orde r Schedule Referral to Audiology Outpatient Referral Routine Bilateral deafness Cochlear implant in place Expected: 04/16/2024 (Approximate), Expires: 04/16/2025 Referral to [facility] Care Outpatient Referral Routine Bilateral deafness Expected: 04/16/2024 (Approximate), Expires: 04/16/2025 documented as of this encounter Procedures Procedure Name Priority Date/Time Associated Diagnosis Comments CBC Routine 04/22/2024 10:09 AM EST Gender dysphoria documented in this encounter Results * (ABNORMAL) CBC (04/22/2024 10:09 AM EST) White Blood Count 11.2(H) 4.8 - 10.8 X10*3/uL [facility] Red Blood Count 4.57 4.20 - 5.50 X10*6/uL [facility] Hemoglobin 13.6 12.0 - 16.0 g/dl [facility] Hematocrit 41.8 37.0 - 47.0 % [facility] Mean Corpuscular Volume 91.5 80.0 - 98.0 fL [facility] Mean Corpuscular Hemoglobin 29.8 27.0 - 33.0 pg [facility] Mean Corpuscular HGB Conc 32.5 31.0 - 35.0 g/dl [facility] Red Cell Distribution Width 13.3 11.0 - 16.0 % [facility] Platelet Count 201 160 - 400 X10*3/uL [facility] Mean Platelet Volume 10.9 9.4 - 12.3 fL [facility] NRBC Pct Auto 0.0 0.0 - 0.2 /100WBC [facility] NRBC Abs Auto 0.000 0.0 - 0.012 X10*3/uL [facility] Blood Venous blood specimen / Unknown 04/22/2024 10:09 AM EST 04/22/2024 11:25 AM EST us Latoya Zazueta MD LAB BLOOD ORDERABLES Final Result [facility] [address] [place] [address] [phone] documented in this encounter Visit Diagnoses Diagnosis Gender dysphoria- Primary Bilateral deafness Unspecified hearing loss Overweight with body mass index (BMI) of 25 to 25.9 in adult Dietary counseling Dietary surveillance and counseling Exercise counseling Other specified health status Encounter for immunization Cochlear implant in place documented in this encounter Additional Health Concerns Assessment Noted Time PHQ-9 Depression Total Score: 0 06/20/19 24 9:42 AM EDT documented as of this encounter Care Teams Pipe Fitter Maintenance Relationship Specialty Start Date End Date Latoya Zazueta MD [address] [place] [address] PCP - General Family Medicine 06/01/20 documented as of this encounter
--- OUTSIDE RECORDS SUMMARY | 2024-04-22 11:52 | XMS_ITS | Encounter Summary ---
Author Organization [employer] Address [address] [facility] 7t [place] [address] Care Team Providers Care Wood Fence Erector Name Role Phone Latoya Zazueta MD Primary Care Provider +1- [phone] Reason for Visit * Reason Onset Date Comments Med Refill 09/25/2023 Encounter Details Date Type Department Care Team (Late st Contact Info) Description 09/25/2023 Refill [facility] [address] [place], [place] [phone] Latoya Zazueta MD [address] [place], [place] [phone] Gender dysphoria Social History Tobacco Use Types [...] documented as of this encounter Care Teams Wood Fence Erector Relationship Specialty Start Date End Date Latoya Zazueta MD [address] [place] [address] PCP - General Family Medicine 06/01/20 documented as of this encounter
--- OUTSIDE RECORDS SUMMARY | 2024-04-22 11:52 | XMS_ITS | Encounter Summary ---
Author Organization [employer] Address [address] [facility] 7t [place] [address] Care Team Providers Care Track Production Engineer Name Role Phone Latoya Zazueta MD Primary Care Provider +1- [phone] Reason for Visit * Reason Comments Pre-visit Planning Pre-visit planning - LVM Encounter Details Date Type Department Care Team ([facility] st Contact Info) Description 04/03/2024 Patient Outreach [facility] MEDICINE [address] [place], [place] [phone] Latoya Zazueta MD [address] [place], [place] [phone] Pre-visit Planning (Pre-visit planning - LVM ) Social History Tobacco Use Types Packs/Day Years [...] AM EDT documented as of this encounter Progress Notes * Judy Worley - 04/03/2024 9:38 AM EST CC Judy Wynn placed outbound call to patient to complete pre-visit planning. No answer at this time. Patient name and were not confirmed. CC left voicemail requesting return call. Direct contact information provided. documented in this encounter Plan of Treatment Not on file documented as of this encounter Visit Diagnoses Not on filedocumented in this encounter Additional Health Concerns Assessment Noted Time PHQ-9 Depression Total Score: 0 06/20/19 24 9:42 AM EDT documented as of this encounter Care Teams Track Production Engineer Relationship Specialty Start Date End Date Latoya Zazueta MD [address] [place] [address] PCP - General Family Medicine 06/01/20 documented as of this encounter
--- OUTSIDE RECORDS SUMMARY | 2024-04-22 11:52 | XMS_ITS | Encounter Summary ---
Author Organization [employer] Address [address] [facility] 7t [place] [address] Care Team Providers Care Inside Sales Administrator Name Role Phone Latoya Zazueta MD Primary Care Provider +1- [phone] Reason for Visit * Reason Onset Date Comments chartprep 04/09/2024 Encounter Details Date Type Department Care Team ([facility] st Contact Info) Description 04/09/2024 Telephone [facility] [address] [place], [place] [phone] Latoya Zazueta MD [address] [place], [place] [phone] chartprep Social History Tobacco Use Types Packs/Day Years [...] encounter Miscellaneous Notes * Telephone Encounter - Judy Rich MA - 04/09/2024 1:48 PM EST ..Chart Prep Labs: not applicable Images: not applicable Vaccines due: Covid Due Referrals: Not Applicable Screenings: Not Applicable Overdue care gaps: SDOH documented in this encounter Plan of Treatment Not on file documented as of this encounter Visit Diagnoses Not on filedocumented in this encounter Additional Health Concerns Assessment Noted Time PHQ-9 Depression Total Score: 0 06/20/19 9:42 AM EDT documented as of this encounter Care Teams Inside Sales Administrator Relationship Specialty Start Date End Date Latoya Zazueta MD [address] [place] [address] PCP - General Family Medicine 06/01/20 documented as of this encounter
[2024-04-22 12:23] LABS: Alanine Aminotransferase 24 U/L (0-31); Albumin Level 4.1 g/dL (3.5-5.0); Alkaline Phosphatase 56 U/L (39-117); Aspartate Amino Transferase 29 U/L (5-31); Bilirubin Direct 0.2 mg/dL (0.0-0.5); Bilirubin Total 0.8 mg/dL (0.0-1.0); Cholesterol 140 mg/dL (<200); HDL Cholesterol 47 mg/dL (>40); LDL Cholesterol Calculated 86 mg/dL (<100); Total Protein 7.1 g/dL (6.5-8.0); Triglycerides 36 mg/dL (<150)
[2024-05-01 06:17] LABS: Testosterone, Total 430 ng/dL (2-45)
== END 2024-04-22 10:07 | disposition home or self-care (01) ==
LOC: HO.HHCL 10:06
PROVIDERS: Visit Provider Family Medicine
DX: F64.9 Gender identity disorder, unspecified (principal)
CPT/HCPCS: 36415; 80061; 80076; 84403; 85027

== ENCOUNTER 2024-11-04 16:04 | Outpatient (REF) | payer MEDICAID, SELFPAY ==
--- OUTSIDE RECORDS SUMMARY | 2024-11-04 15:30 | XMS_ITS | Encounter Summary ---
Author Organization [email or web address] Address [address] [facility] [address] [place] [address] Care Team Providers Care Inspector And Adjuster Golf Club Head Name Role Phone Latoya Zazueta MD Primary Care Provider +1- [phone] Reason for Referral * Consultation (Routine) - Pending Review Specialty Diagnoses / Procedures Referred By Lorin mejia Referred To Contact Cardiology Diagnoses Bilateral deafness Bradycardia Latoya Zazueta MD [address] [place] [address] Phone: tel: fax: Referral ID Status Reason Start Date Expiration Date Visits Requested Visits Authorized [id number] Pending Review Specialty Services Required 11/04/2024 11/04/2025 1 1 Encounter Details Date Type Department Care Team (Late st Contact Info) Description 11/04/2024 3:30 PM EDT Office Visit [facility] MEDICINE [address] [place] [address] Latoya Zazueta MD [address] [place], [place] [phone] Gender dysphoria (Primary Dx); Overweight with body mass index (BMI) of 25 to 25.9 in adult; Dietary counseling; Exercise counseling; Bilateral deafness; Bradycardia Social History Tobacco Use Types Packs/Day Years Used Date Smoking Tobacco: Never Passive Smoke Exposure: Never Smokeless Tobacco: Never Alcohol Use Standard Drinks/Week Comments Never 0 (1 standard drink = 0.6 oz pur e alcohol) Depression Answer Date Recorded Patient Health Questionnaire-9 Score 8 11/04/2024 Patient Health Questionnaire-9 Score 8 11/04/2024 Last PHQ-9: Questionnaire Data Not on file 0 11/04/2024 Housing Stability Answer Date Recorded What is your housing situation today? I am not s ure 11/04/[address] you li ve. Do you have problems with any of the following? None of the above 11/04/2024 Food Insecurity Answer Date Recorded Within the past 12 months, y ou worried that your food would run out before you got money to buy more: Sometimes True 2024 Within the past 12 months,th e food you bought just didn't last and you didn't have enough money to get more: Sometimes True 11/04/2024 Transportation Answer Date Recorded In the past 12 months, has l ack of transportation kept you from medical appts, meetings, work or from getting things needed for daily living? Yes, it has kept me from medical appointments or getting medications. 11/04/2024 Utilities Answer Date Recorded In the past 12 months, has t he electric, gas, oil or water company threatened to shut off services in your home? Yes 11/04/2024 Depression Answer Date Recorded Patient Health Questionnaire-2 Score 2 11/04/2024 Internet Access Answer Date Recorded Internet Access Q1 No 11/04/2024 Internet Access Q2 Not on file 11/04/2024 Comments Unknown Sex and Gender Information Value Date Recorded Sex Assigned at Female 12/18/2021 10:38 AM EDT Legal Sex Male 10:38 AM EDT Gender Identity Transgender Male 12/18/2021 10:3 8 AM EDT Sexual Orientation Straight 12/18/2021 10 :38 AM EDT documented as of this encounter Last Filed Vital Signs Vital Sign Reading Time Taken Comments Blood Pressure 110/50 11/04/2024 3:47 PM EDT Pulse 57 11/04/2024 3:47 PM EDT Temperature 37.3 C (99.1 F) 11/04/2024 3:47 PM EDT Respiratory Rate 16 11/04/2024 3:47 PM EDT Oxygen Saturation 99% 11/04/2024 3:47 PM EDT Inhaled Oxygen Concentration - - Weight 60.8 kg (134 lb) 11/04/2024 3:47 PM EDT Height 149.9 cm (4' 11 ) 11/04/2024 3:47 PM EDT Body Mass Index 27.06 11/04/2024 3:47 PM EDT documented in this encounter Functional Status * Over the past 2 weeks, how often have you been bothered by any of the following problems? Question Answer Date of Assessment Author Patient Health Questionnaire -2 Score 2 11/04/2024 4:04 PM EDT Jania Drake MA * Little interest or pleasure in doing things Answer Date of Assessment Author Several days 11/04/2024 4:04 PM EDT Jania Drake MA * Feeling down, depressed, or hopeless Answer Date of Assessment Author Several days 11/04/2024 4:04 PM EDT Jania Drake MA * Trouble falling or staying asleep, or sleeping too much Answer Date of Assessment Author Nearly every day 11/04/2024 4:04 PM EDT Jania Drake MA * Feeling tired or having little energy Answer Date of Assessment Author Several days 11/04/2024 4:04 PM EDT Jania Drake MA * Poor appetite or overeating Answer Date of Assessment Author Not at all 11/04/2024 4:04 PM EDT Jania Drake MA * Feeling bad about yourself - or that you are a failure or have let yourself or your family down Answer Date of Assessment Author Several days 11/04/2024 4:04 PM EDT Jania Drake MA * Trouble concentrating on things, such as reading the newspaper or watching television Answer Date of Assessment Author Not at all 11/04/2024 4:04 PM EDT Jania Drake MA * Moving or speaking so slowly that other people could have noticed? Or the opposite - being so fidgety or restless that you have been moving around a lot more than usual. Answer Date of Assessment Author Not at all 11/04/2024 4:04 PM Jania Bahena MA * Thoughts that you would be better off or hurting yourself in some way Answer Date of Assessment Author Several days 11/04/2024 4:04 PM LUCILLET Jania Drake MA * Patient Health Questionnaire-9 Score Answer Date of Assessment Author 8 11/04/2024 4:04 PM EDT Jania Drake MA * How difficult have these problems made it for you to do your work, take care of things at home, or get along with other people? Answer Date of Assessment Author Very difficult 11/04/2024 4:04 PM EDT Jania Drake MA * Over the last 2 weeks, how often have you been bothered by any of the following problems? Question Answer Date of Assessment Author Feeling nervous, anxious, or on edge 1 11/04/2024 4:04 PM EDT Jania Drake MA Not being able to stop or co ntrol worrying 1 11/04/2024 4:04 PM EDT Jania Drake MA Worrying too much about diff erent things 2 11/04/2024 4:04 PM EDT Jania Drake MA Trouble relaxing 0 11/04/2024 4:04 PM EDT Jania Antony MA Being so restless that it is hard to sit still 0 11/04/2024 4:04 PM EDT Jania Drake MA Becoming easily annoyed or irritable 1 11/04/2024 4:04 PM EDT Jania Drake MA Feeling afraid as if somethi ng awful might happen 2 11/04/2024 4:04 PM EDT Jania Drake MA KYE-7 Total Score 7 11/04/2024 4:04 PM LUCILLET Jania Drake MA documented as of this encounter Miscellaneous Notes * Assessment & Plan Note - Socrates Segura - 11/04/2024 3:30 PM EDTAssociated Problem(s): Gender dysphoria * Assessment & Plan Note - Socrates Segura - 11/04/2024 3:30 PM EDTAssociated Problem(s): Overweight with body mass index (BMI) of 25 to 25.9 in adult * Assessment & Plan Note - Socrates Segura - 11/04/2024 3:30 PM EDTAssociated Problem(s): Bilateral deafness documented in this encounter Plan of Treatment Upcoming Encounters Date Type Department Care Team (Late st Contact Info) Description 11/20/2024 10:00 AM EDT Procedure Visit [facility] MEDICINE [address] [place], [place] [phone] Latoya Zazueta MD [address] [place], [place] [phone] Scheduled Orders Name Type Priority Associated Diagnoses Orde r Schedule Lyme Disease Ab with Reflex to Blot (IgG, IgM) Lab Routine Bradycardia Expected: 11/04/2024, Expires: 11/04/2025 Scheduled Referrals Name Type Priority Associated Diagnoses Order Schedule Referral to Cardiology Outpatient Referral Routine Bilateral deafness Bradycardia Expected: 11/04/2024 (Approximate), Expires: 11/04/2025 documented as of this encounter Procedures Procedure Name Priority Date/Time Associated Diagnosis Comments TSH W/REFLEX TO FT4 Routine 11/04/2024 4 :08 PM EDT Bradycardia BASIC METABOLIC PANEL Routine 11/04/2024 4:08 PM EDT Bradycardia ECG 12-LEAD Routine 11/04/2024 3:54 PM EDT Bradycardia documented in this encounter Results * (ABNORMAL) Basic Metabolic Panel (11/04/2024 4:08 PM EDT) Sodium 144 135 - 145 mmol/L [facility] Potassium 4.0 3.3 - 5.1 mmol/L [facility] Chloride 110(H) 96 - 108 mmol/L [facility] Carbon Dioxide 28 22 - 29 mmol/L [facility] Anion Gap 10(L) 12 - 20 [facility] Urea Nitrogen (BUN) 18(H) 9 - 16 mg/dL [facility] Creatinine, Serum 0.76 0.5 - 1.4 mg/dL [facility] Estimated Glomerular Filt Rate >60 [facility] Comment:Chronic Kidney Disea se: Estimated GFR < 60 mL/min/[id number] Kidney Disease: Estimated GFR < 15 mL/min/1.73m2 Glucose 85 60 - 115 mg/dL [facility] Calcium 9.4 8.4 - 10.2 mg/dL [facility] Blood Venous blood specimen / Unknown 11/04/2024 4:08 PM EDT 11/04/2024 6:17 PM EDT Latoya Zazueta MD LAB BLOOD ORDERABLES Final Result Performing Organization Address City/[facility]/ZIP Co de Phone Number [facility] [address] [place] [phone] * TSH W/Reflex to FT4 (11/04/2024 4:08 PM EDT) TSH reflex Free T4 0.80 0.32 - 4.0 uIU/mL [facility] Blood Venous blood specimen / Unknown 11/04/2024 4:08 PM EDT 11/04/2024 6:17 PM EDT Latoya Zazueta MD LAB BLOOD ORDERABLES Final Result Performing Organization Address City/[facility] Co de Phone Number [facility] [address] [place] [phone] * ECG 12 lead (11/04/2024 3:54 PM EDT) Latoya Ramos MD - 11/04/2024 3:54 PM EDT Nsr 47 bpm Latoya Zazueta MD ECG ORDERABLES Final Resu lt documented in this encounter Visit Diagnoses Diagnosis Gender dysphoria- Primary Overweight with body mass index (BMI) of 25 to 25.9 in adult Dietary counseling Dietary surveillance and counseling Exercise counseling Bilateral deafness Unspecified hearing loss Bradycardia Other specified cardiac dysrhythmias documented in this encounter Additional Health Concerns Assessment Noted Time PHQ-9 Depression Total Score: 8 11/05/19 25 4:04 PM EDT documented as of this encounter Care Teams Inspector And Adjuster Golf [employer] Head Relationship Specialty Start Date End Date Latoya Zazueta MD [address] [place] [address] PCP - General Family Medicine 06/01/20 documented as of this encounter
[2024-11-04 18:46] LABS: Anion Gap 10 (12-20); Blood Urea Nitrogen 18 mg/dL (9-16); Calcium 9.4 mg/dL (8.4-10.2); Carbon Dioxide 28 mmol/L (22-29); Chloride 110 mmol/L (96-108); Estimated Glomerular Filt Rate > 60; Potassium 4.0 mmol/L (3.3-5.1); Sodium 144 mmol/L (135-145)
--- OUTSIDE RECORDS SUMMARY | 2024-11-04 19:12 | XMS_ITS | Clinical Summary ---
Author Organization [email or web address] [facility] Address [address] [place] [phone] Phone Care Team Providers Care C.O.D. Audit Clerk Name Role Phone Latoya Zazueta MD Primary Care Provi tamiko Allergies No known active allergies Medications testosterone cypionate (DEPO-TESTOTER ONE) 200 mg/mL injection INJECT 0.5ml INTRAMUSCULARLY EVERY 2 WEEKS DIRECTED 04/14/19 Active Family History Medical History Relation Comments Lupus Mother Relation Status Comments Father Alive Mother Alive Social History Tobacco Use Types Packs/Day Years Used Date Smoking Tobacco: Former Cigarettes 1 - 2020 Smokeless Tobacco: Never Education Answer Date Recorded Are you interested in more education? Not on sayda e 06/15/2022 Are you concerned about learning? Not on file 06/15/2022 No 06/15/2022 No 06/15/2022 Digital Access Answer Date Recorded No 07/14/2022 No 07/14/2022 Reliable internet access at home? Not on file 07/14/2022 Device with a working camera? Not on file Comments Unknown Sex and Gender Information Value Date Recorded Sex Assigned at Female 06/30/2023 6:49 PM EDT Legal Sex Female 1:31 PM EST Gender Identity Male 06/30/2023 6:49 PM EDT Sexual Orientation Not on file Last Filed Vital Signs Vital Sign Reading Time Taken Comments Blood Pressure 122/67 07/01/2023 10:46 AM EDT Pulse 44 07/01/2023 10:46 AM EDT Temperature - - Respiratory Rate - - Oxygen Saturation - - Inhaled Oxygen Concentration - - Weight 54.9 kg (121 lb) 07/01/2023 10:46 AM EDT Height 149.9 cm (4' 11 ) 07/01/2023 10:46 AM EDT Body Mass Index 24.44 07/01/2023 10:46 AM EDT Plan of Treatment Upcoming Encounters Date Type Department Care Team (Latest Contact Info) Description 03/18/2025 10:00 AM EST Office Visit [facility] [address] [place] [phone] Lavern Davies PA-C [address] [place] [phone] 08/23/2025 10:00 AM EDT Telemedicine - audio only [facility] [address] [place] [phone] Lavern Davies PA-C [address] [place] [phone] 09/08/2025 Procedure Pass OR Admitting Dept - Virtual Department [address] [place] [phone] 09/08/2025 12:55 PM EDT Hospital Encounter OR Admitting Dept - Virtual Department [address] [place] [phone] Romeo Greenwood MD [address] [place] [phone] 09/08/2025 12:55 PM EDT - 09/08/2025 4:33 PM EDT Surgery OR Admitting Dept - Virtual Department [address] [place] [phone] Romeo Greenwood MD [address] [place] [address] MASTECTOMY 09/13/2025 10:00 AM EDT Office Visit [facility] Surgery [address] [place] [address] Lavern Davies PA-C [address] [facility], [address] [place] [phone] 09/21/2025 10:00 AM EDT Office Visit [facility] Surgery [address] [place] [address] Lavern Davies PA-C [address] [facility], [address] [place] [phone] [email or web address] Scheduled Procedures Name Priority Associated Diagnoses Date/Ti me MASTECTOMY gender dysphoria 09/08/2025 12:55 PM EDT RECONSTRUCTION NIPPLE AREOLA gender dysphoria 09/08/2025 12:55 PM EDT Health Maintenance Due Date Last Done Comments DEPRESSION SCREENING 2010 SMOKING Hx and SMOKELESS TOB ACCO SCREENING 2011 HPV VACCINES (1 - 3-dose series) 2013 HEPATITIS C SCREENING 2016 HIV ONE-TIME SCREENING (18-6 5 YEARS) 2016 PAP SMEAR 2019 INFLUENZA VACCINE (#1) 2024 COVID-19 VACCINE (2 - 2024-2 6 season) 2024 06/15/2020 Adult Td,Tdap Booster 11/04/2031 11/03/2021 HEPATITIS A VACCINES Aged Out No long er eligible based on patient's age to complete this topic HIB VACCINES Aged Out No longer eligi ble based on patient's age to complete this topic MENINGOCOCCAL VACCINES (ACWY) Aged Out No longer eligible based on patient's age to complete this topic MENINGOCOCCAL VACCINES (B) Aged Out N o longer eligible based on patient's age to complete this topic PNEUMOCOCCAL VACCINES (0-49 years) Aged Out No longer eligible based on patient's age to complete this topic Medical Devices Not on file Insurance C3 ACO C3 ACO C3 ACO C3 ACO Care Teams C.O.D. Audit Clerk Relationship Specialty Start Date End Date Marbin, Latoya Lee MD [address] [place] [phone] PCP - General Family Medicine 04/24/21 Additional Source Comments The information contained in this document represents components of the legal health record. It is not the complete legal health record.[facility]
--- OUTSIDE RECORDS SUMMARY | 2024-11-04 19:12 | XMS_ITS | Encounter Summary ---
Author Organization [employer] Address [address] [facility] 7t [place] [address] Care Team Providers Care Supervisor Gluing Name Role Phone Latoya Zazueta MD Primary Care Provider [phone]- [phone] Encounter Details Date Type Department Care Team (Late st Contact Info) Description 03/06/2022 Abstract [facility] MEDICINE [address] [place] [phone] Latoya Zazueta MD [address] [place] [address] [phone] Social History Tobacco Use Types Packs/Day Years Used Date Smoking Tobacco: Never Assessed Comments Unknown Sex and Gender Information Value Date Recorded Sex Assigned at Female 12/18/2021 10:38 AM EDT Legal Sex Male 10:38 AM EDT Gender Identity Transgender Male 12/18/2021 10:3 8 AM EDT Sexual Orientation Straight 12/18/2021 10 :38 AM EDT documented as of this encounter Plan of Treatment Upcoming Encounters Date Type Department Care Team (Late st Contact Info) Description 11/20/2024 10:00 AM EDT Procedure Visit [facility] MEDICINE [address] [place] [phone] Latoya Zazueta MD [address] [place] [address] [phone] documented as of this encounter Procedures Procedure Name Priority Date/Time Associated Diagnosis Comments PAP SMEAR Routine 11/03/2021 12:00 AM EDT documented in this encounter Results * Pap Smear (11/03/2021 12:00 AM EDT) Swab us Latoya Zazueta MD LAB CYTOLOGY ORDERABLES Fi nal Result [facility] [address] [place] [phone] [phone] documented in this encounter Visit Diagnoses Not on filedocumented in this encounter Care Teams Supervisor Gluing Relationship Specialty Start Date End Date Latoya Zazueta MD [address] [place] [phone] PCP - General Family Medicine 06/01/20 documented as of this encounter
--- OUTSIDE RECORDS SUMMARY | 2024-11-04 19:12 | XMS_ITS | Encounter Summary ---
Author Organization [email or web address] Address [address] [facility] 7t [place] [address] Care Team Providers Care Disease Education Specialist Name Role Phone Latoya Zazueta MD Primary Care Provider +1- [phone] Reason for Visit * Reason Onset Date Comments Med Refill 04/04/2022 Encounter Details Date Type Department Care Team ([facility] st Contact Info) Description 04/04/2022 Refill [facility] MEDICINE [address] [place], [place] [phone] Latoya Zazueta MD [address] [place] [address] Social History Tobacco Use Types Packs/Day Years [...] 11:54 AM EST Medication was sent to [facility] Pharm[facility] today 04/04/22. * Telephone Encounter - Billie Blake - 04/04/2022 11:25 AM EST Tc from pt requesting med refill on Needle (disp) 16 gauge x 1 and Alcohol Pads Please sent to [facility] - [place], [place] - [address] [place] [address] documented in this encounter Plan of Treatment Upcoming Encounters Date Type Department Care Team (Late st Contact Info) Description 11/20/2024 10:00 AM EDT Procedure Visit [facility] MEDICINE [address] [place] [address] Latoya Zazueta MD [address] [place] [phone] documented as of this encounter Visit Diagnoses Not on filedocumented in this encounter Care Teams Disease Education Specialist Relationship Specialty Start Date End Date Latoya Zazueta MD [address] [place] [phone] PCP - General Family Medicine 06/01/20 documented as of this encounter
--- OUTSIDE RECORDS SUMMARY | 2024-11-04 19:13 | XMS_ITS | Clinical Summary ---
Author Organization [employer] Address [address] [facility] 7t [place] [address] Care Team Providers Care Strap Cutting Machine Operator Name Role Phone Latoya Zazueta MD Primary Care Provider +1- [phone] Allergies No known active allergies Medications Alcohol Swabs (SM Alcohol Prep) 70 % padsIndications: Gender dysphoria USE BEFORE TESTOSTERONE INJECTION 100 each 5 07/11/19 24 Active Needle, Disp, 16G X 1-1/2 miscIndications: Gender dysphoria use to draw up testosterone 25 each 1 11/13/19 24 Active albuterol (Ventolin HFA) 108 (90 Base) MCG/ACT inhalerIndicatio ns:Mild intermittent asthma without complication INHALE 2 PUFFS BY MOUTH EVERY 4 HOURS NEEDED FOR WHEEZING OR SHORTNESS OF BREATH 18 g 1 01/30/20 24 Active Needle, Disp, (BD Disp [place]) 18G X 1-1/2 miscIndications: Gender dysphoria USE TO DRAW UP TESTOSTERONE DIRECTED 12 each 3 04/30/19 25 Active Syringe/Needle, Disp, (B-D 3CC LUER-VANESSA SYR 25GX1 ) 25G X 1 3 ML miscIndications: Gender dysphoria USE TO INJECT TESTOSTERONE 25 each 5 04/30/19 25 Active testosterone cypionate (Depo-Testostero ne) 200 MG/ML injectionIndicat ions:Gender dysphoria INJECT 0.5 ML INTRAMUSCULARLY EVERY 2 WEEKS 2 mL 4 08/27/19 25 Active Active Problems Problem Noted Date Diagnosed Date Overweight with body mass in dex (BMI) of 25 to 25.9 in adult 04/16/2024 Overview (04/16/2024): Discussed weight, diet, exercise with patient in relation to health conditions. Used motivational interviewing to illicit change talk and established initial goals with patient. Assessment & Plan (11/04/2024 6:32 AM EDT): Assessment & Plan (04/16/2024 9:43 AM EST): [...] care facilitated by none, referral placed to [facility] Eye care 04/16/24 -dental home is none, encouraged to call [facility]. -Health care proxy filed 04/16/24 Assessment & Plan (04/16/2024 10:02 AM EST): -next physical exam due after 04/16/25 -eye care facilitated by none, referral placed to [facility] care 04/16/24 -dental home is none, encouraged to call [facility]. -Health care proxy filed 04/16/24 Assessment & Plan (06/20/2023 10:01 AM EDT): -next physical exam due after 11/01/2023. -eye care facilitated by none, referral placed to [facility] Eye care 06/20/23 -dental home is none, encouraged to call [facility]. -Health care proxy paperwork provided to the patient 5/2/24 Assessment & Plan (10/31/2022 10:49 AM EDT): -next physical exam due after 10/31/2022 -eye care facilitated by none, list given. -dental home is none. Encouraged to call [facility]. 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 -Had cochlear implants -Patient needs cardiology clinical nurse specialist for all visits. Please make note of this in any referrals. -referred to audiology 04/16/24 Assessment & Plan (11/04/2024 6:32 AM EDT): Assessment & Plan (04/16/2024 10:03 AM EST): Bilateral deafness. -Had cochlear implants -Patient needs cardiology clinical nurse specialist for all visits. Please make note of [...] to empowerment project 04/16/24 Assessment & Plan (11/04/2024 6:32 AM EDT): Assessment & Plan (04/16/2024 10:02 AM EST): [...] Problem Noted Date Diagnosed Date Resolved Date Dietary counseling 04/16/2024 Assessment & Plan [...] saturated fat, and sodium. Exercise counseling 04/16/2024 11/05/19 Assessment & Plan (04/16/2024 9:43 AM EST): Exercise Recommendations: At least 150 minutes of moderate-intensity physical activity per week, or an equivalent combination of moderate- and vigorous-intensity activity Sexually transmitted disease exposure 04/05/2022 10/31/2022 Overview [...] Encounters Date Type Department Care Team Description 11/04/2024 3:30 PM EDT Office Visit [address] [address] Latoya Zazueta MD Gender dysphoria (Primary Dx); Overweight with body mass index (BMI) of 25 to 25.9 in adult; Dietary counseling; Exercise counseling; Bilateral deafness; Bradycardia 11/04/2024 Travel 11/03/2024 Telephone [facility] MEDICINE [address] [place] [phone] Latoya Zazueta MD CHART PREP 11/03/2024 Travel 10/30/[address] [address] Latoya Zazueta MD Nurse Triage 09/02/[address] [address] Latoya Zazueat MD October recall 08/26/2024 Refill [facility] MEDICINE [address] [place] [address] Latoya Zazueta MD Gender dysphoria from Last 3 Months Immunizations Immunization Administration Dates Next Due HPV 9-Valent 10/31/2022,05/04/2022,04/06/2022 [...] Tobacco: Never Tobacco Cessation:Counseling Given: Not Answered Alcohol Use Standard Drinks/Week Comments Never 0 [...] Mass Index 27.06 11/04/2024 3:47 PM EDT Plan of Treatment Upcoming Encounters Date Type Department Care Team (Late st Contact Info) Description 11/20/2024 10:00 AM EDT Procedure Visit [facility] MEDICINE [address] [place] [address] Latoya Zazueta MD [address] [place] [address] Health Maintenance Due Date Last Done Comments Family Planning (PISQ) 2013 COVID-19 Vaccine ( season) 2024 03/07/2021, 07/13/2020, 06/15/2020 Influenza Vaccine (#1) 2024 , 10/31/2022, 11/03/2021, Additional history exists Pap Smear 11/03/2024 11/03/2021, 11/03/2021 Alcohol/Substance Use Screening 04/16/2025 04/16/2024 Disability Screening 11/03/2025 11/03/2024 Depression Screening 11/04/2025 11/04/2024, 11/05/19 25 SDOH Screening 11/04/2025 11/04/2024 Tobacco Screening 11/04/2025 11/04/2024 DTaP/Tdap/Td Vaccines (2 - Td or Tdap) [...] Years) and At-Risk Patients (6 to 49) Years Completed 06/20/2023 HIB Vaccines Aged Out No longer eligi ble based on patient's age to complete this topic Hepatitis A Vaccines Aged Out No long er eligible based on patient's age to complete this topic IPV Vaccines Aged Out No longer eligi ble based on patient's age to complete this topic Meningococcal B Vaccine Aged Out No l onger eligible based on patient's age to complete [...] Procedure Name Priority Date/Time Associated Diagnosis Comments BASIC METABOLIC PANEL Routine 11/04/2024 4:08 PM EDT Bradycardia TSH W/REFLEX TO FT4 Routine 11/04/2024 4 :08 PM EDT Bradycardia ECG 12-LEAD Routine 11/04/2024 3:54 PM EDT Bradycardia HEPATITIS C AB W/REFL TO HCV RNA, QN, PCR Routine 06/20/2023 10:19 AM EDT Screen for sexually transmitted diseases HIV 1/2 ANTIGEN/ANTIBODY, FOURTH GENERATION W/RFL Routine 06/20/2023 10:19 AM EDT Screen for sexually transmitted diseases PAP SMEAR Routine 11/03/2021 12:00 AM EDT from Last 3 Months or Most Recently Relevant to Health Maintenance Results * TSH W/Reflex to FT4 (11/04/2024 4:08 PM EDT) TSH reflex Free T4 0.80 0.32 - 4.0 uIU/mL [facility] Blood Venous blood specimen / Unknown 11/04/2024 4:08 PM EDT 11/04/2024 6:17 PM EDT Latoya Zazueta MD LAB BLOOD ORDERABLES Final Result [facility] [address] [place] [phone] * (ABNORMAL) Basic Metabolic Panel (11/04/2024 4:08 PM EDT) Sodium 144 135 - 145 mmol/L [facility] Potassium 4.0 3.3 - 5.1 mmol/L [facility] Chloride 110(H) 96 - 108 mmol/L [facility] Carbon Dioxide 28 22 - 29 mmol/L [facility] Anion Gap 10(L) 12 - 20 [facility] Urea Nitrogen (BUN) 18(H) 9 - 16 mg/dL [facility] Creatinine, Serum 0.76 0.5 - 1.4 mg/dL [facility] Estimated Glomerular Filt Rate >60 [facility] Comment:Chronic Kidney Disea se: Estimated GFR < 60 mL/min/1.74x8Ldkmbh Kidney Disease: Estimated GFR < 15 mL/min/1.73m2 Glucose 85 60 - 115 mg/dL [facility] Calcium 9.4 8.4 - 10.2 mg/dL [facility] Blood Venous blood specimen / Unknown 11/04/2024 4:08 PM EDT 11/04/2024 6:17 PM EDT Latoya Zazueta MD LAB BLOOD ORDERABLES Final Result Performing Organization Address City/[facility]/ZIP Co de Phone Number [facility] [address] [place] [phone] * ECG 12 lead (11/04/2024 3:54 PM EDT) Narrative aLtoya Zazueta MD - 11/04/2024 3:54 PM EDT Nsr 47 bpm Latoya Zazueta MD ECG ORDERABLES Final Resu lt * Hepatitis C Antibody with Reflex to HCV, RNA, Quantitative, Real-Time PCR (06/20/2023 10:19 AM EDT) Hepatitis C Antibody Nonreactive Nonreactive [facility] Comment:Antibodies to HCV no t detected; does not exclude early acuteHCV infection. Blood Venous blood specimen / Unknown 06/20/2023 10:19 AM EDT 06/20/2023 11:27 AM EDT Latoya Zazueta MD LAB BLOOD ORDERABLES Final Result Performing Organization Address City/[facility]/ZIP Co de Phone Number [facility] [address] [place] [phone] * HIV-1/2 Antigen and Antibodies, Fourth Generation, with Reflexes (06/20/2023 10:19 AM EDT) HIV AB/AG Nonreactive Nonreactive [facility] Comment:HIV-1 p24 Ag and/or HIV-1/HIV-2 Ab not detected.A test result that is nonreactive does not exclude thepossibility of exposure to or infection with HIV-1 and/orHIV-2. Nonreactive results in this assay for individualswith prior exposure to HIV-1 and/or HIV-2 may be due toantigen and antibody levels that are below the limit ofdetection of this assay.The Turbo-Trac [employer] HIV Ag/Ab Combo assay result andsupplemental assay results should be interpreted inconjunction with the patient's clinical presentation,history and other laboratory results. If the results areinconsistent with clinical evidence, additional testing issuggested to confirm the result. Blood Venous blood specimen / Unknown 06/20/2023 10:19 AM EDT 06/20/2023 11:27 AM EDT Latoya Zazueta MD LAB BLOOD ORDERABLES Final Result Performing Organization Address [facility] Co de Phone Number [facility] [address] [place] [phone] * Pap Smear (11/03/2021 12:00 AM EDT) Swab Latoya Zazueta MD LAB CYTOLOGY ORDERABLES Fi nal Result Performing Organization Address [facility] Co de Phone Number [facility] [address] [place] [phone] from Last 3 Months or Most Recently Relevant to Health Maintenance [place] [address] [place] [address] C3 Advance Directives Documents on File Type Date Recorded Patient Animal Killer Expl anation Advance Directives and Living Will 04/17/2024 1:04 PM Health Care Proxy Care Teams Strap Cutting Machine Operator Relationship Specialty Start Date End Date Latoya Zazueta MD [address] [place] [address] PCP - General Family Medicine 06/01/20
--- OUTSIDE RECORDS SUMMARY | 2024-11-04 19:13 | XMS_ITS | Encounter Summary ---
Author Organization [employer] Address [address] [facility] 7t [place] [address] Care Team Providers Care Clothing Patternmaker Name Role Phone Latoya Zazueta MD Primary Care Provider +1- [phone] Reason for Visit * Reason Onset Date Comments CHART PREP 11/03/2024 Encounter Details Date Type Department Care Team ([facility] st Contact Info) Description 11/03/2024 Telephone [facility] MEDICINE [address] [place], [place] [phone] Latoya Zazueta MD [address] [place] [address] CHART PREP Social History Tobacco Use Types Packs/Day Years [...] encounter Miscellaneous Notes * Telephone Encounter - Soto Collins [place] - 11/03/2024 7:09 PM EDT Chart Prep Labs: done Images: not applicable Referrals: not applicable Vaccines due: Covid and Flu Screenings: not applicable Overdue care gaps: SDOH, PHQ-9, and KYE-7, oral health documented in this encounter Plan of Treatment Upcoming Encounters Date Type Department Care Team (Late st Contact Info) Description 11/20/2024 10:00 AM EDT Procedure Visit [facility] MEDICINE [address] [place] [address] Latoya Zazueta MD [address] [place] [address] documented as of this encounter Visit Diagnoses Not on filedocumented in this encounter Additional Health Concerns Assessment Noted Time PHQ-9 Depression Total Score: 0 06/20/19 24 9:42 AM EDT documented as of this encounter Care Teams Clothing Patternmaker Relationship Specialty Start Date End Date Latoya Zazueta MD [address] [place] [address] PCP - General Family Medicine 06/01/20 documented as of this encounter
--- OUTSIDE RECORDS SUMMARY | 2024-11-04 19:13 | XMS_ITS | Encounter Summary ---
Author Organization [employer] Address [address] [facility] 7t [place] [address] Care Team Providers Care Therapy Teacher Name Role Phone Latoya Zazueta MD Primary Care Provider +1- [phone] Reason for Visit * Reason Onset Date Comments Nurse Triage 10/30/2024 Encounter Details Date Type Department Care Team ([facility] st Contact Info) Description 10/30/2024 Telephone [facility] MEDICINE [address] [place], [place] [phone] Latoya Zazueta MD [address] [place] [address] Nurse Triage Social History Tobacco Use Types Packs/Day Years [...] encounter Miscellaneous Notes * Telephone Encounter - Maureen Fritz RN - 10/30/2024 11:21 AM EDT Incoming call from patient with museum docent relay regarding portal messages. Pt states that wasnot having any sx of lightheadedness, dizziness or weakness. Denies any Chest discomfort. Does not recall if had anything for breakfast prior to that visit. Pt last documented VS in office BP 120/68 HR 62 on 04/16/24. Pt questioning of testosterone tx could be causing low HR. Pt advised will forward this note along with Portal messages that contain DOT physical summary for provider to review. Pt advised to seek UC or ER over weekend if develops any symptoms. Pt agrees to above at this time. Protocol Used: Heart Rate and Heartbeat Questions (Adult) Protocol-Based Disposition: See in Office or Video Visit Today Override (Final) Disposition: Discuss with PCP and Callback by Nurse Today Override Reason: Already seen and questions Positive Triage Question: * Heart beating very slowly (e.g., < 50 / minute) and NOT present now (Exception: Athlete and heart rate is normal for caller.) * All higher-acuity triage questions were negative Care Advice Discussed: * Reasons To Call Back - Chest pain, lightheadedness or difficulty breathing occurs - Heart beating over 140 beats / minute - You become worse documented in this encounter Plan of Treatment Upcoming Encounters Date Type Department Care Team (Late st Contact Info) Description 11/20/2024 10:00 AM EDT Procedure Visit [facility] MEDICINE [address] [place] [address] Latoya Zazueta MD [address] [place] [address] documented as of this encounter Visit Diagnoses Not on filedocumented in this encounter Additional Health Concerns Assessment Noted Time PHQ-9 Depression Total Score: 0 06/20/19 24 9:42 AM EDT documented as of this encounter Care Teams Therapy Teacher Relationship Specialty Start Date End Date Latoya Zazueta MD [address] [place] [address] PCP - General Family Medicine 06/01/20 documented as of this encounter
--- OUTSIDE RECORDS SUMMARY | 2024-11-04 19:13 | XMS_ITS | Encounter Summary ---
Author Organization [employer] Address [address] [facility] [address] 7t [place] [address] Care Team Providers Care Bank Advisor Name Role Phone Latoya Zazueta MD Primary Care Provider +1- [phone] Encounter Details Date Type Department Care Team (Latest Contact Info) Description 11/03/2024 Travel Social History Tobacco Use Types Packs/Day [...] Description 11/20/2024 10:00 AM EDT Procedure Visit [facility] MEDICINE [address] [place] [address] Laotya Zazueta MD [address] [place] [address] documented as of this encounter Visit Diagnoses Not on filedocumented in this encounter Additional Health Concerns Assessment Noted Time PHQ-9 Depression Total Score: 0 06/20/19 24 9:42 AM EDT documented as of this encounter Care Teams Bank Advisor Relationship Specialty Start Date End Date Latoya Zazueta MD [address] [place] [address] PCP - General Family Medicine 06/01/20 documented as of this encounter
--- OUTSIDE RECORDS SUMMARY | 2024-11-04 19:13 | XMS_ITS | Encounter Summary ---
Author Organization [employer] Address 75 [facility] 7t [place] [address] Care Team Providers Care Hydrochloric Area Supervisor Name Role Phone Latoya Zazueta MD Primary Care Provider +1- [phone] Reason for Visit * Reason Onset Date Comments Med Refill 05/27/2024 Encounter Details Date Type Department Care Team ([facility] st Contact Info) Description 05/27/2024 Telephone [facility] MEDICINE [address] [place], [place] [phone] Latoya Zazueta MD [address] [place] [address] Med Refill Social History Tobacco Use Types [...] encounter Miscellaneous Notes * Telephone Encounter - iLgia Tang LPN - 05/27/2024 12:29 PM EDT Medications requested have refills at [facility]. * Telephone Encounter - Oswaldo Hutson - 05/27/2024 11:57 AM EDT TC from pt requesting medication refill. Medications needing refill : testosterone cypionate (Depo-Testosterone) 200 MG/ML injection Syringe/Needle, Disp, (B-D 3CC LUER-VANESSA SYR 25GX1 ) 25G X 1 3 ML misc To be sent to: [facility] - [place], [place] - [address] [facility] documented in this encounter Plan of Treatment Upcoming Encounters Date Type Department Care Team (Late st Contact Info) Description 11/20/2024 10:00 AM EDT Procedure Visit [facility] [address] [facility] [place] [address] Latoya Zazueta MD [address] [facility] [place] [address] documented as of this encounter Visit Diagnoses Not on filedocumented in this encounter Additional Health Concerns Assessment Noted Time PHQ-9 Depression Total Score: 0 06/20/19 24 9:42 AM EDT documented as of this encounter Care Teams Hydrochloric Area Supervisor Relationship Specialty Start Date End Date Latoya Zazueta MD [address] [place] [address] PCP - General Family Medicine 06/01/20 documented as of this encounter
--- OUTSIDE RECORDS SUMMARY | 2024-11-04 19:13 | XMS_ITS | Encounter Summary ---
Author Organization [employer] Address [address] [facility] 7t [place] [address] Care Team Providers Care Utilization Reviewer Name Role Phone Latoya Zazueta MD Primary Care Provider +1- [phone] Reason for Visit * Reason Onset Date Comments Med Refill 01/08/2024 Encounter Details Date Type Department Care Team ([facility] st Contact Info) Description 01/08/2024 Telephone [facility] MEDICINE [address] [place], [place] [phone] Latoya Zazueta MD [address] [place] [address] Med Refill Social History Tobacco Use Types [...] 8:45 AM EST Medication was sent to [id number] on 11/13/23 with 4 refills. * Telephone Encounter - Radha Orosco - 01/08/2024 8:41 AM EST TC from pt requesting medication refill. Medications needing refill : testosterone cypionate (Depo-Testosterone) 200 MG/ML injection To be sent to: [facility]/pharmacy #[id number] [place], [place] - [phone] SUSI JEREZ documented in this encounter Plan of Treatment Upcoming Encounters Date Type Department Care Team (Late st Contact Info) Description 11/20/2024 10:00 AM EDT Procedure Visit [facility] MEDICINE [address] [place] [address] Latoya Zazueta MD [address] [place] [address] documented as of this encounter Visit Diagnoses Not on filedocumented in this encounter Additional Health Concerns Assessment Noted Time PHQ-9 Depression Total Score: 0 06/20/19 9:42 AM EDT documented as of this encounter Care Teams Utilization Reviewer Relationship Specialty Start Date End Date Latoya Zazueta MD [address] [place] [address] PCP - General Family Medicine 06/01/20 documented as of this encounter
--- OUTSIDE RECORDS SUMMARY | 2024-11-04 19:13 | XMS_ITS | Encounter Summary ---
Author Organization [employer] Address 75 [facility] 7t [place] [address] Care Team Providers Care Maintenance Equipment Operator Name Role Phone Latoya Zazueta MD Primary Care Provider +1- [phone] Reason for Visit * Reason Onset Date Comments Med Refill 09/25/2023 Encounter Details Date Type Department Care Team (Late st Contact Info) Description 09/25/2023 Refill [facility] MEDICINE [address] [place], [place] [phone] Latoya Zazueta MD [address] [place], [place] [phone] Gender dysphoria Social History Tobacco Use Types [...] Description 11/20/2024 10:00 AM EDT Procedure Visit [facility] MEDICINE [address] [place] [address] Latoya Zazueta MD [address] [place] [address] documented as of this encounter Visit Diagnoses Diagnosis Gender dysphoria documented in this encounter Additional Health Concerns Assessment Noted Time PHQ-9 Depression Total Score: 0 06/20/19 24 9:42 AM EDT documented as of this encounter Care Teams Maintenance Equipment Operator Relationship Specialty Start Date End Date Latoya Zazueta MD [address] [place] [address] PCP - General Family Medicine 06/01/20 documented as of this encounter
--- OUTSIDE RECORDS SUMMARY | 2024-11-04 19:13 | XMS_ITS | Encounter Summary ---
Author Organization [employer] Address [address] [facility] 7t [place] [address] Care Team Providers Care Manager Health Name Role Phone Latoya Zazueta MD Primary Care Provider +1- [phone] Reason for Visit * Reason Onset Date Comments Med Refill 07/10/2023 Encounter Details Date Type Department Care Team ([facility] st Contact Info) Description 07/10/2023 Telephone [facility] MEDICINE [address] [place], [place] [phone] Latoya Zazueta MD [address] [place] [address] Med Refill Social History Tobacco Use Types [...] 200 MG/ML injection To be sent to: [facility]/pharmacy #[id number] [facility] [phone] [place] [address] documented in this encounter Plan of Treatment Upcoming Encounters Date Type Department Care Team (Late st Contact Info) Description 11/20/2024 10:00 AM EDT Procedure Visit [facility] MEDICINE [address] [place] [address] Latoya Zazueta MD [address] [place] [address] documented as of this encounter Visit Diagnoses Not on filedocumented in this encounter Additional Health Concerns Assessment Noted Time PHQ-9 Depression Total Score: 0 06/20/19 9:42 AM EDT documented as of this encounter Care Teams Manager Health Relationship Specialty Start Date End Date Latoya Zazueta MD [address] [place] [address] PCP - General Family Medicine 06/01/20 documented as of this encounter
--- OUTSIDE RECORDS SUMMARY | 2024-11-04 19:13 | XMS_ITS | Encounter Summary ---
Author Organization [employer] Address [address]t [place] [address] Care Team Providers Care Mechanical Design Technician Name Role Phone Latoya Zazueta MD Primary Care Provider +1- [phone] Encounter Details Date Type Department Care Team (Latest Contact Info) Description 11/04/2024 Travel Social History Tobacco Use Types Packs/Day [...] AM EDT documented as of this encounter Functional Status * Over the [...] 4:04 PM EDT Jania Drake MA * Thoughts that you would be better off or hurting yourself in some way Answer Date of Assessment Author Several days 11/04/2024 4:04 PM EDT Jania Drake MA * Patient Health Questionnaire-9 [...] Drake MA documented as of this encounter Plan of Treatment Upcoming Encounters Date Type Department Care Team (Late st Contact Info) Description 11/20/2024 10:00 AM EDT Procedure Visit [facility] MED[facility]INE [address] [place] [address] Latoya Zazueta MD [address] [place] [address] documented as of this encounter Visit Diagnoses Not on filedocumented in this encounter Additional Health Concerns Assessment Noted Time PHQ-9 Depression Total Score: 8 11/05/19 25 4:04 PM EDT documented as of this encounter Care Teams Mechanical Design Technician Relationship Specialty Start Date End Date Latoya Zazueta MD [address] [place] [address] PCP - General Family Medicine 06/01/20 documented as of this encounter
--- OUTSIDE RECORDS SUMMARY | 2024-11-04 19:13 | XMS_ITS | Encounter Summary ---
Author Organization [employer] Address [address] [facility] 7t [place] [address] Care Team Providers Care Service Planner Name Role Phone Latoya Zazueta MD Primary Care Provider +1- [phone] Reason for Visit * Reason Onset Date Comments Med Refill 09/16/2023 Encounter Details Date Type Department Care Team (Late st Contact Info) Description 09/16/2023 Refill [facility] MEDICINE [address] [place], [place] [phone] Latoya Zazueta MD [address] [place] [address] Gender dysphoria Social History Tobacco Use Types [...] Description 11/20/2024 10:00 AM EDT Procedure Visit [facility] MED[facility] [address] [place] [address] Latoya Zazueta MD [address] [place] [address] documented as of this encounter Visit Diagnoses Diagnosis Gender dysphoria documented in this encounter Additional Health Concerns Assessment Noted Time PHQ-9 Depression Total Score: 0 06/20/19 24 9:42 AM EDT documented as of this encounter Care Teams Service Planner Relationship Specialty Start Date End Date Latoya Zazueta MD [address] [place] [address] PCP - General Family Medicine 06/01/20 documented as of this encounter
[2024-11-05 13:32] LABS: Lyme Abs Screen <0.90 index
== END 2024-11-04 16:05 | disposition home or self-care (01) ==
LOC: HO.HHCL 16:04
PROVIDERS: PCP Family Medicine; Visit Provider Family Medicine
DX: R00.1 Bradycardia, unspecified (principal); Z11.9 Encounter for screening for infectious and parasitic diseases, unspecified
CPT/HCPCS: 36415; 80048; 84443; 86617; 86618

== ENCOUNTER 2024-11-20 19:43 | Outpatient (REF) | payer MEDICAID, SELFPAY ==
--- OUTSIDE RECORDS SUMMARY | 2024-11-20 10:00 | XMS_ITS | Encounter Summary ---
Author Organization [employer] Address [address] 7[address] [place] [address] Care Team Providers Care Transitions Manager Name Role Phone Latoya Zazueta MD Primary Care Provider +1- [phone] Reason for Visit * Reason Comments PAP Encounter Details Date Type Department Care Team (Latest Contact Info) Description 11/20/2024 10:00 AM EDT Procedure Visit [facility] MEDICINE [address] [place], [place] [phone] Latoya Zazueta MD [address] [place], [place] [phone] Cervical cancer screening (Primary Dx); Gender dysphoria; Encounter for immunization Social History Tobacco Use Types Packs/Day Years [...] Q2 Not on file 11/04/2024 Comments Unknown Intention Date Recorded No desire to become (finding) 1 Sex and Gender Information Value Date Recorded Sex Assigned at Female 12/18/2021 10:38 AM EDT Legal Sex Male 10:38 AM EDT Gender Identity Transgender Male 12/18/2021 10:3 8 AM EDT Sexual Orientation Straight 12/18/2021 10 :38 AM EDT documented as of this encounter Last Filed Vital Signs Vital Sign Reading Time Taken Comments Blood Pressure 100/82 11/20/2024 10:01 AM EDT Pulse 63 11/20/2024 10:01 AM EDT Temperature 35.4 C (95.7 F) 11/20/2024 10:01 AM EDT Respiratory Rate 20 11/20/2024 10:01 AM EDT Oxygen Saturation 98% 11/20/2024 10:01 AM EDT Inhaled Oxygen Concentration - - Weight 61.4 kg (135 lb 6.4 oz) 11/20/2024 10:01 AM EDT Height - - Body Mass Index 27.35 11/04/2024 3:47 PM EDT documented in this encounter Progress Notes * Latoya Zazueta MD - 11/20/2024 10:00 AM EDT Subjective Zack Dolan is a 24 y.o. Trans-man here for pap. LMP:none due to testosterone Desires within the next year:no Brith control: Breast concerns: Negative for: lump bilateral, tenderness bilateral, nipple discharge bilateral, and Masses Menopausal symptoms negative for: hot flashes, night sweats, urinary incontinence and vaginal dryness. Review of Systems Review of Systems Previous paps:3 years ago WNL Objective Visit Vitals BP 100/82 (BP Location: Left arm, Patient Position: Sitting, BP Cuff Size: Adult) Pulse 63 Temp 95.7 ??F (35.4 ??C) (Oral) Resp 20 Physical Exam Chest: Breasts: Right: Normal. Left: Normal. Genitourinary: General: Normal vulva. Vagina: Normal. Cervix: Normal. Uterus: Normal. Comments: Clitorimegaly, nulliparous OS Lymphadenopathy: Upper Body: Right upper body: No supraclavicular, axillary or pectoral adenopathy. Left upper body: No supraclavicular, axillary or pectoral adenopathy. Assessment & Plan Cervical cancer screening Pap with HPV reflex testing done STI testing offered, PreP declined. Declines family planning due to not sexually active Preventative care and harm reduction discussed Orders: Pap Smear STI testing add on (NG, CT, Trich) Gender dysphoria Orders: Hepatic Function Panel; Future CBC; Future Testosterone, Total, males (Adult), IA; Future Lipid Panel, Standard; Future Encounter for immunization Orders: FLU VACCINE TRIVALENT [id number] (Fluarix) 19 yrs + documented in this encounter Miscellaneous Notes * Assessment & Plan Note - Latoya Zazueta MD - 11/20/2024 10:00 AM EDT Associated Problem(s): Gender dysphoria Orders: Hepatic Function Panel; Future CBC; Future Testosterone, Total, males (Adult), IA; Future Lipid Panel, Standard; Future documented in this encounter Plan of Treatment Scheduled Orders Name Type Priority Associated Diagnoses Orde r Schedule Hepatic Function Panel Lab Routine Gender dysphoria Expected: 11/20/2024 (Approximate), Expires: 11/20/2025 CBC Lab Routine Gender dysphoria Expected: 11/20/2024, Expires: 11/20/2025 Testosterone, Total, males (Adult), IA Lab Routine Gender dysphoria Expected: 11/20/2024, Expires: 11/20/2025 Lipid Panel, Standard Lab Routine Gender dysphoria Expected: 11/20/2024 (Approximate), Expires: 11/20/2025 Pap Smear Pathology and Cytology Routine Cervical cancer screening Ordered: 11/20/2024 STI testing add on (NG, CT, Trich) Pathology and Cytology Routine Cervical cancer screening Ordered: 11/20/2024 documented as of this encounter Visit Diagnoses Diagnosis Cervical cancer screening- Primary Screening for malignant neoplasm of the cervix Gender dysphoria Encounter for immunization documented in this encounter Additional Health Concerns Assessment Noted Time PHQ-9 Depression Total Score: 8 11/05/19 25 4:04 PM EDT documented as of this encounter Care Teams Transitions Manager Relationship Specialty Start Date End Date Latoya Zazueta MD [address] [place] [address] PCP - General Family Medicine 06/01/20 documented as of this encounter
--- OUTSIDE RECORDS SUMMARY | 2024-11-20 19:46 | XMS_ITS | Clinical Summary ---
Author Organization [employer] [facility] Address [address] [place] [phone] Phone Care Team Providers Care Remodeler Name Role Phone Latoya Zazueta MD Primary [...] Description 03/18/2025 10:00 AM EST Office Visit [facility] Plastic Surgery [address] [place] [address] Lavern Davies PA-C [address] [place] [address] 08/23/2025 10:00 AM EDT Telemedicine - audio only [facility] Plastic Surgery [address] [place] [address] Lavern Davies PA-C [address] [place] [phone] 09/08/2025 Procedure Pass OR Admitting Dept - Virtual Department [address] [place] [address] 09/08/2025 12:55 PM EDT Hospital Encounter OR Admitting Dept - Virtual Department [address] [place] [address] Romeo Greenwood MD [address] [place] [address] 09/08/2025 12:55 PM EDT - 09/08/2025 4:33 PM EDT Surgery OR Admitting Dept - Virtual Department [address] [place] [address] Romeo Greenwood MD [address] [place] [address] [email or web address] 09/13/2025 10:00 AM EDT Office Visit [facility] Plastic Surgery [address] [place] [address] Lavern Davies PA-C [address] [facility], [address] [place] [address] 09/21/2025 10:00 AM EDT Office Visit [facility] Plastic Surgery [address] [place] [address] Lavern Davies PA-C [address] [facility], [address] [place] [address] [email or web address] Scheduled Procedures Name Priority Associated Diagnoses Date/Ti [...] ACO C3 ACO C3 ACO Care Teams Remodeler Relationship Specialty Start Date End Date Scotrun, Latoya Lee MD [address] [place] [address] PCP - General Family Medicine 04/24/21 Additional Source Comments The information contained in this document represents components of the legal health record. It is not the complete legal health record.[facility]
--- OUTSIDE RECORDS SUMMARY | 2024-11-20 19:46 | XMS_ITS | Encounter Summary ---
Author Organization [employer] Address [address] [facility] 7t [place] [address] Care Team Providers Care Bag Press Operator Name Role Phone Latoya Zazueta MD Primary Care Provider +1- [phone] Reason for Visit * Reason Onset Date Comments Med Refill 01/08/2024 Encounter Details Date Type Department Care Team ([facility] st Contact Info) Description 01/08/[address] [facility] MEDICINE [address] [place], [place] [phone] Latoya Zazueta MD 230 [place] [address] Med Refill Social History Tobacco Use Types [...] 8:45 AM EST Medication was sent to [facility][id number] on 11/13/23 with 4 refills. * Telephone Encounter - Radha Orosco - 01/08/2024 8:41 AM EST TC from pt requesting medication refill. Medications needing refill : testosterone cypionate (Depo-Testosterone) 200 MG/ML injection To be sent to: [facility]/pharmacy #[id number] [place], [place] - [phone] SUSI JEREZ documented in this encounter Plan of Treatment Not on file documented as of this encounter Visit Diagnoses Not on filedocumented in this encounter Additional Health Concerns Assessment Noted Time PHQ-9 Depression Total Score: 0 06/20/19 9:42 AM EDT documented as of this encounter Care Teams Bag Press Operator Relationship Specialty Start Date End Date Latoya Zazueta MD [address] [place] [phone] PCP - General Family Medicine 06/01/20 documented as of this encounter
--- OUTSIDE RECORDS SUMMARY | 2024-11-20 19:46 | XMS_ITS | Encounter Summary ---
Author Organization [employer] Address [address] [facility] [address] 7[address] [place] [address] Care Team Providers Care Adjunct Physical Education Instructor Name Role Phone Latoya Zazueta MD Primary Care Provider +1- [phone] Encounter Details Date Type Department Care Team (Latest Contact Info) Description 11/20/2024 Travel Social History Tobacco Use Types Packs/Day [...] documented as of this encounter Care Teams Adjunct Physical Education Instructor Relationship Specialty Start Date End Date Latoya Zazueta MD [address] [place] [address] PCP - General Family Medicine 06/01/20 documented as of this encounter
--- OUTSIDE RECORDS SUMMARY | 2024-11-20 19:46 | XMS_ITS | Encounter Summary ---
Author Organization [employer] Address [address] [facility] 7t [place] [address] Care Team Providers Care Appraisal Coordinator Name Role Phone Latoya Zazueta MD Primary Care Provider +1- [phone] Reason for Visit * Reason Onset Date Comments Med Refill 04/04/2022 Encounter Details Date Type Department Care Team ([facility] st Contact Info) Description 04/04/2022 Refill [facility] MEDICINE [address] [place], [place] [phone] Latoya Zazueta MD [address] [place] [address] Social History Tobacco Use Types Packs/Day Years [...] 11:54 AM EST Medication was sent to [facility] today 04/04/22. * Telephone Encounter - Billie Galvanso Blake - 04/04/2022 11:25 AM EST Tc from pt requesting med refill on Needle (disp) 16 gauge x 1 and Alcohol Pads Please sent to [facility] - [place] - [address] [facility] documented in this encounter Plan of Treatment Not on file documented as of this encounter Visit Diagnoses Not on filedocumented in this encounter Care Teams Appraisal Coordinator Relationship Specialty Start Date End Date Latoya Zazueta MD [address] [facility] [place] [address] PCP - General Family Medicine 06/01/20 documented as of this encounter
--- OUTSIDE RECORDS SUMMARY | 2024-11-20 19:46 | XMS_ITS | Encounter Summary ---
Author Organization [employer] Address [address] [facility] 7t [place] [address] Care Team Providers Care General Car Yard Supervisor Name Role Phone Latoya Zazueta MD Primary Care Provider +1- [phone] Reason for Visit * Reason Onset Date Comments Med Refill 05/27/2024 Encounter Details Date Type Department Care Team ([facility] st Contact Info) Description 05/27/2024 Telephone [facility] MEDICINE 230 [place], [place] [phone] Latoya Zazueta MD [address] [place] [address] Med Refill Social History Tobacco Use Types [...] Telephone Encounter - Ligia Tang LPN - 05/27/2024 12:29 PM EDT Medications requested have refills at [facility]. * Telephone Encounter - Oswaldo Hutson - 05/27/2024 11:57 AM EDT TC from pt requesting medication refill. Medications needing refill : testosterone cypionate (Depo-Testosterone) 200 MG/ML injection Syringe/Needle, Disp, (B-D 3CC LUER-VANESSA SYR 25GX1 ) 25G X 1 3 ML misc To be sent to: [facility] - [place], [place] - [address] [place] [address] documented in this encounter Plan of Treatment Not on file documented as of this encounter Visit Diagnoses Not on filedocumented in this encounter Additional Health Concerns Assessment Noted Time PHQ-9 Depression Total Score: 0 06/20/19 24 9:42 AM EDT documented as of this encounter Care Teams General Car Yard Supervisor Relationship Specialty Start Date End Date Latoya Zazueta MD [address] [facility] [place] [address] PCP - General Family Medicine 06/01/20 documented as of this encounter
--- OUTSIDE RECORDS SUMMARY | 2024-11-20 19:46 | XMS_ITS | Clinical Summary ---
Author Organization [facility] Address [address] [place] [address] Care Team Providers Care Hosiery Bagger Name Role Phone Unavailable Primary Care Provider [...] Cervical Cancer Screening: P ap Smear 2019 HIV Screening 01/17/2022 Hepatitis C Screening 01/17/2022 Social Influencers of Health Screening 01/17/2022 Depression Screening 02/19/2024 COVID-19 Vaccine (1 - 2023-2 5 season) 2024 Influenza Vaccine (#1) 2024 RSV Immunization Adult Patie nts (1 - 1-dose 75+ series) 2073 HIB Vaccines Aged Out No longer eligi [...] 5 Years) and At-Risk Patients (6 to 49 Years) Aged Out No longer eligible b ased on patient's age to complete this topic RSV Immunization Patients Un tamiko 20 months Aged Out No longer eligible b ased on patient's age to complete this topic Varicella Vaccines Aged Out No longer eligible based on patient's age to complete this topic
--- OUTSIDE RECORDS SUMMARY | 2024-11-20 19:46 | XMS_ITS | Clinical Summary ---
Author Organization [employer] Address [address] [facility] 7t [place] [address] Care Team Providers Care Leasing Specialist Name Role Phone Latoya Zazueta MD Primary Care Provider +1- [phone] Allergies No known active allergies Medications Alcohol [...] 01/30/20 24 Active Needle, Disp, (BD Disp Big Bar) 18G X 1-1/2 miscIndications: Gender dysphoria USE [...] initial goals with patient. Assessment & Plan (11/05/2024 9:11 AM EDT): Discussed weight, diet, exercise with patient in [...] due after 04/16/25 -eye care facilitated by [facility], referral placed to [facility] care 04/16/24 -dental home is none, encouraged to call [facility]. -Health care proxy filed 04/16/24 Assessment & Plan (04/16/2024 10:02 AM EST): -next physical exam due after 04/16/25 -eye care facilitated by [facility], referral placed to [facility] care 04/16/24 -dental home is none, encouraged to call [facility]. -Health care proxy filed 04/16/24 Assessment & Plan (06/20/2023 10:01 AM EDT): -next physical exam due after 11/01/2023. -eye care facilitated by none, referral placed to [facility] care 06/20/23 -dental home is none, encouraged to call [facility]. -Health care proxy paperwork provided to the patient 06/20/23 Assessment & Plan (10/31/2022 10:49 AM EDT): -next physical exam due after 10/31/2022 -eye care facilitated by none, list given. -dental home is none. Encouraged to call [facility]. 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 -Had cochlear implants -Patient needs metal pourer for all visits. Please make note of this in any referrals. -referred to audiology 04/16/24 Assessment & Plan (11/05/2024 9:11 AM EDT): Bilateral deafness. -Had cochlear implants -Patient needs metal pourer for all visits. Please make note of this in any referrals. Orders: Referral to Cardiology; Future Assessment & Plan (04/16/2024 10:03 AM EST): Bilateral deafness. -Had cochlear implants -Patient needs metal pourer for all visits. Please make note of [...] to empowerment project 04/16/24 Assessment & Plan (11/20/2024 11:24 AM EDT): Orders: Hepatic Function Panel; Future CBC; Future Testosterone, Total, males (Adult), IA; Future Lipid Panel, Standard; Future Assessment & Plan (11/05/2024 9:11 AM EDT): Assigned female at , socially [...] fat, and sodium. Exercise counseling 04/16/2024 11/05/19 25 Assessment & Plan (04/16/2024 9:43 AM EST): [...] Encounters Date Type Department Care Team Description 11/20/2024 10:00 AM EDT Procedure Visit [address] [address] Latoya Zazueta MD Cervical cancer screening (Primary Dx); Gender dysphoria; Encounter for immunization 11/20/2024 Travel 11/19/[address] [address] Latoya Zazueta MD chart prep 11/13/2024 Travel 11/05/2024 Results Follow-Up [facility] [address] [place] [id number] Latoya Zazueta MD Lyme Disease Ab with Reflex to Blot (IgG, IgM), TSH W/Reflex to FT4, Basic Metabolic Panel 11/04/2024 3:30 PM EDT Office Visit [address] [address] Latoya Zazueta MD Gender dysphoria (Primary Dx); Bradycardia; Overweight with body mass index (BMI) of 27 to 27.9 in adult; Dietary counseling; Exercise counseling; Bilateral deafness; Positive depression screening 11/04/2024 Travel 11/03/[address] [address] Latoya Zazueta MD CHART PREP 11/03/2024 Travel 10/30/[address] [address] Latoya Zazueta MD Nurse Triage 09/02/[address] [address] Latoya Zazueta MD October recall 08/26/[address] [address] Latoya Zazueta MD Gender dysphoria from Last 3 Months Immunizations Immunization Administration Dates Next Due HPV 9-Valent 10/31/2022,05/04/2022,04/06/2022 05/04/2022 Hep B, adult 06/20/2023, 3,05/04/2022,04/0605/04/2022 Influenza injectable quadriv alent IIV4 with preservative 10/31/2022 Influenza injectable quadriv alent preservative free 11/03/2021,12/19/2020 Influenza, seasonal, injecta ble, preservative free 11/20/2024,04/16/2024 Moderna Covid-19 Vaccine 12+ 03/07/2021,07/14/19 21,06/15/2020 Pneumococcal [...] 6.4 oz) 11/20/2024 10:01 AM EDT Height 149.9 cm (4' 11 ) 11/04/2024 3:47 PM EDT Body Mass Index 27.35 11/04/2024 3:47 PM EDT Plan of Treatment Health Maintenance Due Date Last Done Comments Pap Smear 11/03/2024 11/03/2021, 11/03/2021 Alcohol/Substance Use Screening 04/16/2025 04/16/2024 Disability Screening 11/03/2025 11/03/2024 Depression Screening 11/04/2025 11/04/2024, 11/05/19 25 SDOH Screening 11/04/2025 11/04/2024 COVID-19 Vaccine ( season) 2025 03/07/2021, 07/13/2020, 06/15/2020 Postponed from 10/19/2024 (Patient Refused) Family Planning (PISQ) 11/20/2025 11/20/2024 Tobacco Screening 11/20/2025 11/20/2024 DTaP/Tdap/Td Vaccines (2 - Td or Tdap) [...] Patients (6 to 49) Years Completed 06/20/2023 Influenza Vaccine Completed 11/20/2024, , 10/31/2022, Additional history exists HIB Vaccines Aged Out [...] this topic Meningococcal Vaccine Aged Out No augstin maura eligible based on patient's age to [...] Routine 11/04/2024 4 :08 PM EDT Bradycardia LYME DISEASE AB W/REFL TO BLOT (IGG, IGM) Routine 11/04/2024 4:08 PM EDT Bradycardia ECG [...] Free T4 0.80 0.32 - 4.0 uIU/mL [facility] Blood Venous blood specimen / Unknown 11/04/2024 4:08 PM EDT 11/04/2024 6:17 PM EDT Latoya Zazueta MD LAB BLOOD ORDERABLES Final Result [facility] [address] [place] [phone] * Lyme Disease Ab with Reflex to Blot (IgG, IgM) (11/04/2024 4:08 PM EDT) Pathologist [facility] Lyme Antibody Screen <0.90 index [facility] Comment:Index Interpretation ----- < 0.90 Negative 0.90-1.09 Equivocal > 1.09 PositiveAs recommended by the Food and Drug Administration(FDA), all samples with positive or equivocalresults in a Borrelia burgdorferi antibody screenwill be tested using a blot method. Positive orequivocal screening test results should not beinterpreted as truly positive until verified as suchusing a supplemental assay (e.g., B. burgdorferi blot).The screening test and/or blot for B. burgdorferiantibodies may be falsely negative in early stagesof Lyme disease, including the period when erythemamigrans is apparent.THIS TEST WAS PERFORMED AT:[facility] [place] [id number] GIL MD Lyme Blot TNP [facility] 11/04/2024 4:08 PM EDT 11/04/2024 6:17 PM EDT Latoya Zazueta MD LAB BLOOD ORDERABLES Final Result Performing Organization Address City/[facility]/ZIP Co de Phone Number [facility] [address] [place] [phone] * (ABNORMAL) Basic Metabolic Panel (11/04/2024 4:08 PM EDT) Sodium 144 135 - 145 mmol/L [facility] Potassium 4.0 3.3 - 5.1 mmol/L [facility] Chloride 110(H) 96 - 108 mmol/L [facility] Carbon Dioxide 28 22 - 29 mmol/L [facility] Anion Gap 10(L) 12 - 20 [facility] Urea Nitrogen (BUN) 18(H) 9 - 16 mg/dL [facility] Creatinine, Serum 0.76 0.5 - 1.4 mg/dL [facility] Estimated Glomerular Filt Rate >60 [facility] Comment:Chronic Kidney Disea se: Estimated GFR < 60 mL/min/1.34c2Bdsyrn Kidney Disease: Estimated GFR < 15 mL/min/1.73m2 Glucose 85 60 - 115 mg/dL [facility] Calcium 9.4 8.4 - 10.2 mg/dL [facility] Blood Venous blood specimen / Unknown 11/04/2024 4:08 PM EDT 11/04/2024 6:17 PM EDT Latoya Zazueta MD LAB BLOOD ORDERABLES Final Result Performing Organization Address City/[facility]/ZIP Co de Phone Number [facility] [address] [place] [phone] * ECG 12 lead (11/04/2024 3:54 PM EDT) Narrative Latoya Zazueta MD - 11/04/2024 3:54 PM EDT Nsr 47 bpm Latoya Zazueta MD ECG ORDERABLES Final Resu lt * Hepatitis C Antibody with Reflex to HCV, RNA, Quantitative, Real-Time PCR (06/20/2023 10:19 AM EDT) Hepatitis C Antibody Nonreactive Nonreactive [facility] Comment:Antibodies to HCV no t detected; does not exclude early acuteHCV infection. Blood Venous blood specimen / Unknown 06/20/2023 10:19 AM EDT 06/20/2023 11:27 AM EDT Latoya Zazueta MD LAB BLOOD ORDERABLES Final Result [facility] [address] [place] [phone] [phone] * HIV-1/2 Antigen and Antibodies, Fourth Generation, with Reflexes (06/20/2023 10:19 AM EDT) Pathologist [facility] HIV AB/AG Nonreactive Nonreactive [facility] Comment:HIV-1 p24 Ag and/or HIV-1/HIV-2 Ab not detected.A test result that is nonreactive does not exclude thepossibility of exposure to or infection with HIV-1 and/orHIV-2. Nonreactive results in this assay for individualswith prior exposure to HIV-1 and/or HIV-2 may be due toantigen and antibody levels that are below the limit ofdetection of this assay.The [employer] HIV Ag/Ab Combo assay result andsupplemental assay results should be interpreted inconjunction with the patient's clinical presentation,history and other laboratory results. If the results areinconsistent with clinical evidence, additional testing issuggested to confirm the result. Blood Venous blood specimen / Unknown 06/20/2023 10:19 AM EDT 06/20/2023 11:27 AM EDT Latoya Zazueta MD LAB BLOOD ORDERABLES Final Result Performing Organization Address [facility]/ZIP Co de Phone Number [facility] [address] [place] [phone] [phone] * Pap Smear (11/03/2021 12:00 AM EDT) Swab Latoya Zazueta MD LAB CYTOLOGY ORDERABLES Fi nal Result Performing Organization Address [facility] Co de Phone Number [facility] [address] [place] [phone] from Last 3 Months or Most Recently Relevant to Health Maintenance Insurance [facility] C3 Advance Directives Documents on File Type Date Recorded Patient Ward Service Supervisor Expl anation Advance Directives and Living Will 04/17/2024 1:04 PM Health Care Proxy Care Teams Leasing Specialist Relationship Specialty Start Date End Date Marbin, MD Latoya [address] [place] [address] PCP - General Family Medicine 06/01/20
--- OUTSIDE RECORDS SUMMARY | 2024-11-20 19:46 | XMS_ITS | Encounter Summary ---
Author Organization [employer] Address [address] [facility] 7t [place] [address] Care Team Providers Care Core Worker Name Role Phone Latoya Zazueta MD Primary Care Provider +1- [phone] Reason for Visit * Reason Onset Date Comments Med Refill 09/16/2023 Encounter Details Date Type Department Care Team (Late st Contact Info) Description 09/16/2023 Refill [facility] [address] [place], [place] [phone] Latoya Zazueta MD [address] [place] [address] Gender dysphoria Social History Tobacco Use Types [...] documented as of this encounter Care Teams Core Worker Relationship Specialty Start Date End Date Latoya Zazueta MD [address] [place] [phone] PCP - General Family Medicine 06/01/20 documented as of this encounter
--- OUTSIDE RECORDS SUMMARY | 2024-11-20 19:46 | XMS_ITS | Encounter Summary ---
Author Organization [employer] Address [address] [facility] 7t [place] [address] Care Team Providers Care Police Surgeon Name Role Phone Latoya Zazueta MD Primary Care Provider [phone]- [phone] Reason for Visit * Reason Onset Date Comments Med Refill 07/10/2023 Encounter Details Date Type Department Care Team ([facility] st Contact Info) Description 07/10/2023 Telephone [facility] [address] [place], [place] [phone] Latoya Zazueta MD [address] [place] [address] Med Refill Social History Tobacco Use Types [...] 200 MG/ML injection To be sent to: [facility]/pharmacy #[id number] [facility] [phone] [place] [address] documented in this encounter Plan of Treatment Not on file documented as of this encounter Visit Diagnoses Not on filedocumented in this encounter Additional Health Concerns Assessment Noted Time PHQ-9 Depression Total Score: 0 06/20/19 9:42 AM EDT documented as of this encounter Care Teams Police Surgeon Relationship Specialty Start Date End Date Latoya Zazueta MD [address] [place] [address] PCP - General Family Medicine 06/01/20 documented as of this encounter
--- OUTSIDE RECORDS SUMMARY | 2024-11-20 19:46 | XMS_ITS | Encounter Summary ---
Author Organization [employer] Address [address] [facility] [address] 7t [place] [address] Care Team Providers Care Shopper Name Role Phone Latoya Zazueta MD Primary Care Provider +1- [phone] Reason for Visit * Reason Onset Date Comments chart prep 11/19/2024 Encounter Details Date Type Department Care Team ([facility] st Contact Info) Description 11/19/2024 Telephone [facility] [address] [place], [place] [phone] Latoya Zazueta MD [address] [place] [address] chart prep Social History Tobacco Use Types Packs/Day Years [...] encounter Miscellaneous Notes * Telephone Encounter - Shan Kumar MA - 11/19/2024 10:05 AM EDT Chart Prep Labs: done Images: not applicable Referrals: appointment pending Vaccines due: Covid and Flu Screenings: pap smear Overdue care gaps: Oral health screening documented in this encounter Plan of Treatment Not on file documented as of this encounter Visit Diagnoses Not on filedocumented in this encounter Additional Health Concerns Assessment Noted Time PHQ-9 Depression Total Score: 8 11/05/19 25 4:04 PM EDT documented as of this encounter Care Teams Shopper Relationship Specialty Start Date End Date Latoya Zazueta MD [address] [place] [address] PCP - General Family Medicine 06/01/20 documented as of this encounter
--- OUTSIDE RECORDS SUMMARY | 2024-11-20 19:46 | XMS_ITS | Encounter Summary ---
Author Organization [employer] Address [address] [facility] 7t [place] [address] Care Team Providers Care Print Color Matcher Name Role Phone Latoya Zazueta MD Primary Care Provider [phone]- [phone] Encounter Details Date Type Department Care Team (Late st Contact Info) Description 03/06/2022 Abstract [facility] [address] [place], [place] [phone] Latoya Zazueta MD [address] [place] [address] Social History Tobacco Use Types Packs/Day Years [...] MD LAB CYTOLOGY ORDERABLES Fi nal Result [facility] [address] [place] [phone] documented in this encounter Visit Diagnoses Not on filedocumented in this encounter Care Teams Print Color Matcher Relationship Specialty Start Date End Date Latoya Zazueta MD [address] [place] [phone] PCP - General Family Medicine 06/01/20 documented as of this encounter
--- OUTSIDE RECORDS SUMMARY | 2024-11-20 19:46 | XMS_ITS | Encounter Summary ---
Author Organization [employer] Address [address] [facility] [address]t [place] [address] Care Team Providers Care Tank Builder Supervisor Name Role Phone Latoya Zazueta MD Primary Care Provider +1- [phone] Reason for Visit * Reason Onset Date Comments Med Refill 09/25/2023 Encounter Details Date Type Department Care Team (Late st Contact Info) Description 09/25/2023 Refill [facility] [address] [place], [place] [phone] Latoya Zazueta MD [address] [place], [place] [phone] Gender dysphoria Social History Tobacco Use Types [...] documented as of this encounter Care Teams Tank Builder Supervisor Relationship Specialty Start Date End Date Latoya Zazueta MD [address] [place] [phone] PCP - General Family Medicine 06/01/20 documented as of this encounter
[2024-11-24 21:06] LABS: C. trachomatis RNA TMA NOT DETECTED (NOT DETECTED); N. gonorrhoeae RNA TMA NOT DETECTED (NOT DETECTED); Trichomonas (NAAT) NOT DETECTED (NOT DETECTED)
== END 2024-11-20 19:44 | disposition home or self-care (01) ==
LOC: HO.LNP 19:43
PROVIDERS: Visit Provider Family Medicine
DX: Z12.4 Encounter for screening for malignant neoplasm of cervix (principal); Z20.2 Contact with and (suspected) exposure to infections with a predominantly sexual mode of transmission; Z11.8 Encounter for screening for other infectious and parasitic diseases
CPT/HCPCS: 87491; 87591; 87661; 88175